=== PATIENT | male | born 1950 | race Caucasian/White ===

== ENCOUNTER → 2016-08-14 | Outpatient (CLI) | payer OTHER ==
[~2016-08-14] MED LIST: AMIT50TA PO; ASPI81TA85 PO; BACL10TA2 PO; FAMO40SU PO; Inhaler INH; LYRI100C10 PO; METO25TA74 PO; PLAV75TA38 PO; VICO5TAB16 PO
--- NOTE | 2016-08-15 01:29 | ECWPNPC ---
PATIENT NAME: JOSE MOSLEY : 1950 GENDER: MALE VISIT DATE: 08/14/2016 DISCHARGE DATE: 08/14/16 1004 VISIT LOCKED DATE TIME: PHYSICIAN: LEV BLEVINS RESOURCE: LEV BLEVINS HISTORY OF PRESENT ILLNESS HISTORY OF PRESENT ILLNESS: HERE FOR F/U FOR CHRONIC PAIN W HX OF WORK RELATED INJURY 1997.RATING PAIN VAS 5/10.DESCRIBES PAIN CONSTANT SHARP AND ACHING.USING DCS DAILY THAT IS HELPFUL.USING HYDROCODONE APROX. 6 TAB PER DAY BY ,PRIMARY CARE. PAIN THE PATIENT DESCRIBES THE PAIN... THE PATIENT DESCRIBES THE PAIN... THE PATIENT DESCRIBES THE PAIN... PAIN THE PATIENT DESCRIBES THE PAIN... THE PATIENT DESCRIBES THE PAIN... THE PATIENT DESCRIBES THE PAIN... FALL RISK SCREENING: SCREENING :NO FALLS IN THE PAST YEAR CURRENT MEDICATIONS TAKING HYDROCODONE-ACETAMINOPHEN 5-325 MG TABLET (SCHEDULE II DRUG) (PRIOR AUTH: RX REF#:[id number]) ORAL TAKING LYRICA 150 MG CAPSULE (SCHEDULE V DRUG) (PRIOR AUTH: RX REF#:[id number]) ORAL 3 TIMES DAILY TAKING BACLOFEN 10 MG TABLET (PRIOR AUTH: RX REF#:[id number]) ORAL 3 TIMES DAILY TAKING AMITRIPTYLINE HCL 25 MG TABLET (PRIOR AUTH: RX REF#:[id number]) ORAL 3 TIMES DAILY TAKING FAMOTIDINE 40 MG TABLET (PRIOR AUTH: RX REF#:[id number]) ORAL 3 TIMES DAILY TAKING CLOPIDOGREL BISULFATE 75 MG TABLET 1 TABLET ORALLY ONCE A DAY TAKING METOPROLOL TARTRATE 25 MG TABLET 1 TABLET ORALLY DAILY MEDICATION LIST REVIEWED AND RECONCILED WITH THE PATIENT PAST MEDICAL HISTORY CARDIAC STENTS ALLERGIES N.K.D.A. SURGICAL HISTORY SPINAL CORD STIMULAR [address] REVIEW OF SYSTEMS CONSTITUTIONAL: ANY CHANGE IN YOUR MEDICAL CONDITION? NO . CHILLS NO . FEVER NO . INFECTION: DO YOU HAVE NEW INFECTIONS? NO . DO YOU HAVE HISTORY OF MRSA? NO . MUSCULOSKELETAL: ANY NEW PATTERNS OF PAIN OR NUMBNESS? NO . GASTROENTEROLOGY: ANY NEW CHANGE IN BOWEL CONTROL? NO . GENITOURINARY: ANY NEW CHANGE IN BLADDER CONTROL? NO . IS THERE A CHANCE YOU COULD BE ? NO . HEMATOLOGY/LYMPH: DO YOU TAKE ANY BLOOD THINNERS? (FOR EXAMPLE- COUMADIN, PLAVIX, AGGRENOX, PLATEL, PRADAXA, OR XARELTO) YES, PLAVIX . WHEN WAS YOUR LAST DOSE? DATE: TIME: . NEUROLOGY: HAVE YOU FALLEN IN THE PAST 6 MONTHS? NO . ANY NEW EXTREMITY NUMBNESS OR WEAKNESS? NO . CARDIOLOGY: DO YOU HAVE A PACEMAKER OR DEFIBRILLATOR? NO . RESPIRATORY: HAVE YOU BEEN SICK IN THE PAST WEEK? NO . FEVER NO . FLU LIKE SYMPTOMS? NO . COUGH NO . INTEGUMENTARY: DO YOU HAVE ANY RASHES OR OPEN SORES? NO . ALLERGIC/IMMUNO: ARE YOU ALLERGIC TO SHELLFISH OR IV DYE? NO . ANY NEW ALLERGIES? NO . PSYCHIATRIC: DO YOU HAVE THOUGHTS OF HURTING YOURSELF OR SOMEONE ELSE? NO . ARE YOU ABUSED, NEGLECTED, OR IN AN UNSAFE ENVIRONMENT? NO . ENDOCRINOLOGY: ARE YOU DIABETIC? NO . OTHER: DO YOU NEED ANY PRESCRIPTIONS? NO . IF YES, PLEASE LIST: ____ . ANY NEW PROBLEMS WITH YOUR MEDICATIONS? NO . WHEN DID YOU LAST EAT? ____ . WHEN DID YOU LAST DRINK? ____ . WHAT DID YOU LAST DRINK? ____ . NAME OF PERSON DRIVING YOU HOME? ____ . DO YOU HAVE ANY OTHER QUESTIONS OR CONCERNS NO . REVIEWED BY: PROVIDER: LEV RENTERIA . VITAL SIGNS WT 175.0 LBS, HT 5'7", BMI 27.41 INDEX, BP 144/92 MM HG, HR 103 /MIN, RR 18 /MIN, TEMP 98.5 F, OXYGEN SAT % 96%, NA INITIALS TL 0953. EXAMINATION GENERAL EXAMINATION: LUNGS:LUNG SOUNDS ARE CLEAR. HEART:HEART RATE REGULAR. MUSCULOSKELETAL:PALPATION- POSITIVE TENDERNESS OVER R PARASPINAL REGION. INCISIONAL AREAS WELL HEALED W NO REDNESS. NON-TENDER., MUSCLE STRENGTH TESTING 5/5 R LEG,2/5L, RANGE OF MOTION L/S SPINE LIMITED W INCREASE PAIN W FLEXION AND EXTENSION.. DIAGNOSTIC: . ASSESSMENTS LOW BACK PAIN OF OVER 3 MONTHS DURATION - M54.5 (PRIMARY) OTHER CHRONIC PAIN - G89.29 TREATMENT LOW BACK PAIN OF OVER 3 MONTHS DURATION NOTES: CONTINUE WITH USE OF DCS/MEDICINE MANAGEMENT PER DR. MAYS. PROCEDURES PN WORKMANS' COMP OPINION IN YOUR OPINION, WAS THE INCIDENT THAT THE PATIENT DESCRIBED THE COMPETENT MEDICAL CAUSE OF THIS INJURY/ILLNESS? YES ARE THE PATIENT'S COMPLAINTS CONSISTENT WITH HIS/HER HISTORY OF THE INJURY/ILLNESS? YES IS THE PATIENT'S HISTORY OF THE INJURY/ILLNESS CONSISTENT WITH YOUR OBJECTIVE FINDING? YES WHAT IS THE PERCENTAGE OF TEMPORARY IMPAIRMENT? MODERATE TO MARKED = 66.7% IS THE PATIENT WORKING? NO DOCTOR ON SITE: ELMA IVEY MD PROCEDURE CODES FA211 ESTABILISHED PATIENT [facility] CHARGE DISPOSITION & COMMUNICATION FOLLOW UP 3 MONTHS ELECTRONICALLY SIGNED BY MYRA IQBAL ON 08/14/2016 AT 10:24 AM EDT DISCLAIMER : THIS IS A VISIT SUMMARY EXTRACTED FROM THE [employer] CHART. IT IS NOT A COPY OF THE [employer] PROGRESS NOTE. MALGORZATA
== END ==
LOC: M PAIN 09:20
PROVIDERS: ATTEND Nurse Practitioner Family
DX: G89.29 Other chronic pain (principal); M54.5 Low back pain; Z79.01 Long term (current) use of anticoagulants; Z79.891 Long term (current) use of opiate analgesic; Z79.899 Other long term (current) drug therapy

== ENCOUNTER → 2016-11-14 | Outpatient (CLI) | payer OTHER ==
[~2016-11-14] MED LIST changes: -FAMO40SU PO; +FAMO40SU4 PO; -LYRI100C10 PO; +METO1TAB32 PO; -METO25TA74 PO; +PLAV1TAB2 PO; -PLAV75TA38 PO; +PREG100CA PO
--- NOTE | 2016-11-15 01:50 | ECWPNPC ---
PATIENT NAME: JOSE MOSLEY : 1950 GENDER: MALE VISIT DATE: 11/14/2016 DISCHARGE DATE: 11/14/16930 VISIT LOCKED DATE TIME: PHYSICIAN: LEV BLEVINS RESOURCE: LEV BLEVINS REASON FOR APPOINTMENT 1. LBP HISTORY OF PRESENT ILLNESS HISTORY OF PRESENT ILLNESS: HERE FOR F/U FOR CHRONIC PAIN W HX OF WORK RELATED INJURY 1997.RATING PAIN VAS 5/10.DESCRIBES PAIN CONSTANT SHARP AND ACHING.USING DCS DAILY THAT IS HELPFUL.USING HYDROCODONE APROX. 6 TAB PER DAY BY ,PRIMARY CARE. PAIN THE PATIENT DESCRIBES THE PAIN... THE PATIENT DESCRIBES THE PAIN... THE PATIENT DESCRIBES THE PAIN... THE PATIENT DESCRIBES THE PAIN... PAIN THE PATIENT DESCRIBES THE PAIN... THE PATIENT DESCRIBES THE PAIN... THE PATIENT DESCRIBES THE PAIN... THE PATIENT DESCRIBES THE PAIN... PAIN THE PATIENT DESCRIBES THE PAIN... THE PATIENT DESCRIBES THE PAIN... THE PATIENT DESCRIBES THE PAIN... THE PATIENT DESCRIBES THE PAIN... FALL RISK SCREENING: SCREENING :NO FALLS IN THE PAST YEAR CURRENT MEDICATIONS TAKING HYDROCODONE-ACETAMINOPHEN 5-325 MG TABLET (SCHEDULE II DRUG) (PRIOR AUTH: RX REF#:[id number]) ORAL UP TO 6 PER DAY NEEDED TAKING LYRICA 150 MG CAPSULE (SCHEDULE V DRUG) (PRIOR AUTH: RX REF#:[id number]) ORAL 3 TIMES DAILY TAKING BACLOFEN 10 MG TABLET (PRIOR AUTH: RX REF#:[id number]) ORAL 3 TIMES DAILY TAKING AMITRIPTYLINE HCL 25 MG TABLET (PRIOR AUTH: RX REF#:[id number]) ORAL 3 TIMES DAILY TAKING FAMOTIDINE 40 MG TABLET (PRIOR AUTH: RX REF#:[id number]) ORAL 3 TIMES DAILY TAKING CLOPIDOGREL BISULFATE 75 MG TABLET 1 TABLET ORALLY ONCE A DAY TAKING METOPROLOL TARTRATE 25 MG TABLET 1 TABLET ORALLY DAILY MEDICATION LIST REVIEWED AND RECONCILED WITH THE PATIENT PAST MEDICAL HISTORY CARDIAC STENTS ALLERGIES N.K.D.A. SOCIAL HISTORY GENERAL: TOBACCO USE ARE YOU A:FORMER SMOKER HOW LONG HAS IT BEEN SINCE YOU LAST SMOKED?1-5 YEARS ALCOHOL SCREENING DID YOU HAVE A DRINK CONTAINING ALCOHOL IN THE PAST YEAR?YES POINTS2 INTERPRETATIONNEGATIVE HOW OFTEN DID YOU HAVE A DRINK CONTAINING ALCOHOL IN THE PAST YEAR?TWO TO FOUR TIMES A MONTH (2 POINTS) HOW MANY DRINKS DID YOU HAVE ON A TYPICAL DAY WHEN YOU WERE DRINKING IN THE PAST YEAR?1 OR 2 (0 POINTS) HOW OFTEN DID YOU HAVE SIX OR MORE DRINKS ON ONE OCCASION IN THE PAST YEAR?NEVER (0 POINTS) RECREATIONAL DRUG USE DRUG USE?YES HOW OFTEN AND HOW MUCH? SMOKES POT EVERY NIGHT BEFORE HER GOES TO BED CAFFEINE CAFFEINE USE?NO MARITAL STATUS: . RELIGIOUS [id number] PENTECOSTAL LANGUAGE LANGUAGES SPOKEN:[place] LEARNING BARRIERS / SPECIAL NEEDS BARRIERS TO LEARNING?NO HEARING IMPAIRED?NO VISION IMPAIRED?YES :CORRECTIVE LENSES COGNITIVELY IMPAIRED?NO READINESS TO LEARN?YES LEARNING PREFERENCES?NO LEARNING CAPABILITIES PRESENT?YES EMOTIONAL BARRIERS?NO SPECIAL DEVICES?NO TRANSPORTATION ASSOCIATE NEEDED?NO PAIN CLINIC PFS, CLERGY, PUBLIC HEALTH REFERRALS PFS REFERRAL NEEDED?NO CLERGY REFERRAL NEEDED?NO PUBLIC HEALTH REFERRAL NEEDED?NO WAS THE PROVIDER NOTIFIED OF ANY PERTINENT INFO?NO HAS THE PATIENT BEEN EDUCATED REGARDING HIS/HER PLAN OF CARE?YES HAS THE PATIENT BEEN EDUCATED REGARDING PAIN, THE RISK FOR PAIN, THE IMPORTANCE OF EFFECTIVE PAIN MANAGEMENT, AND THE PAIN ASSESSMENT PROCESS?YES ADVANCE DIRECTIVES HEALTH CARE PROXY?YES NAME OF HCP GARETT MELANY CONTACT # FOR HCP [phone] DO YOU HAVE A COPY WITH YOU?NO DO YOU HAVE A DNR?NO WOULD YOU LIKE MORE INFORMATION?NO LIVING WILL?NO WOULD YOU LIKE MORE INFORMATION?NO POWER OF BILINGUAL LEGAL ASSISTANT?NO WOULD YOU LIKE MORE INFORMATION?NO REVIEW OF SYSTEMS REVIEWED BY: PROVIDER: LEV RENTERIA . CONSTITUTIONAL: ANY CHANGE IN YOUR MEDICAL CONDITION? NO . CHILLS NO . FEVER NO . INFECTION: DO YOU HAVE NEW INFECTIONS? NO . DO YOU HAVE HISTORY OF MRSA? NO . MUSCULOSKELETAL: ANY NEW PATTERNS OF PAIN OR NUMBNESS? NO . GASTROENTEROLOGY: ANY NEW CHANGE IN BOWEL CONTROL? NO . GENITOURINARY: ANY NEW CHANGE IN BLADDER CONTROL? NO . IS THERE A CHANCE YOU COULD BE ? NO . HEMATOLOGY/LYMPH: DO YOU TAKE ANY BLOOD THINNERS? (FOR EXAMPLE- COUMADIN, PLAVIX, AGGRENOX, PLATEL, PRADAXA, OR XARELTO) YES, PLAVIX . WHEN WAS YOUR LAST DOSE? DATE:11/14/16 TIME: 0400 . NEUROLOGY: HAVE YOU FALLEN IN THE PAST 6 MONTHS? NO . ANY NEW EXTREMITY NUMBNESS OR WEAKNESS? NO . CARDIOLOGY: DO YOU HAVE A PACEMAKER OR DEFIBRILLATOR? NO . RESPIRATORY: HAVE YOU BEEN SICK IN THE PAST WEEK? NO . FEVER NO . FLU LIKE SYMPTOMS? NO . COUGH NO . INTEGUMENTARY: DO YOU HAVE ANY RASHES OR OPEN SORES? NO . ALLERGIC/IMMUNO: ARE YOU ALLERGIC TO SHELLFISH OR IV DYE? NO . ANY NEW ALLERGIES? NO . PSYCHIATRIC: DO YOU HAVE THOUGHTS OF HURTING YOURSELF OR SOMEONE ELSE? NO . ARE YOU ABUSED, NEGLECTED, OR IN AN UNSAFE ENVIRONMENT? NO . ENDOCRINOLOGY: ARE YOU DIABETIC? NO . OTHER: DO YOU NEED ANY PRESCRIPTIONS? NO . IF YES, PLEASE LIST: ____ . ANY NEW PROBLEMS WITH YOUR MEDICATIONS? NO . WHEN DID YOU LAST EAT? ____ . WHEN DID YOU LAST DRINK? ____ . WHAT DID YOU LAST DRINK? ____ . NAME OF PERSON DRIVING YOU HOME? ____ . DO YOU HAVE ANY OTHER QUESTIONS OR CONCERNS NO . VITAL SIGNS WT 182.2 LBS, HT 5'7", BMI 28.53 INDEX, BP 128/84 MM HG, HR 100 /MIN, RR 20 /MIN, TEMP 97.5 F, OXYGEN SAT % 95%, REVIEWED BY: JOSELITO (DONE AT 0901). EXAMINATION GENERAL EXAMINATION: LUNGS:LUNG SOUNDS ARE CLEAR. HEART:HEART RATE REGULAR. MUSCULOSKELETAL:PALPATION- POSITIVE TENDERNESS OVER R PARASPINAL REGION. INCISIONAL AREAS WELL HEALED W NO REDNESS. NON-TENDER., MUSCLE STRENGTH TESTING 5/5 R LEG,2/5L, RANGE OF MOTION L/S SPINE LIMITED W INCREASE PAIN W FLEXION AND EXTENSION.. DIAGNOSTIC: . ASSESSMENTS LOW BACK PAIN OF OVER 3 MONTHS DURATION - M54.5 (PRIMARY) OTHER CHRONIC PAIN - G89.29 TREATMENT LOW BACK PAIN OF OVER 3 MONTHS DURATION NOTES: CONTINUE HOME EXCERSIZE AND STRETCHING.CONTINUE USE OF DCS. PROCEDURES PN WORKMANS' COMP OPINION IN YOUR OPINION, WAS THE INCIDENT THAT THE PATIENT DESCRIBED THE COMPETENT MEDICAL CAUSE OF THIS INJURY/ILLNESS? YES ARE THE PATIENT'S COMPLAINTS CONSISTENT WITH HIS/HER HISTORY OF THE INJURY/ILLNESS? YES IS THE PATIENT'S HISTORY OF THE INJURY/ILLNESS CONSISTENT WITH YOUR OBJECTIVE FINDING? YES WHAT IS THE PERCENTAGE OF TEMPORARY IMPAIRMENT? MODERATE TO MARKED = 66.7% IS THE PATIENT WORKING? NO DOCTOR ON SITE: ELMA IVEY MD PROCEDURE CODES FA211 ESTABILISHED PATIENT [facility] CHARGE DISPOSITION & COMMUNICATION FOLLOW UP 3 MONTHS ELECTRONICALLY SIGNED BY MYRA IQBAL ON 11/14/2016 AT 09:33 AM EDT DISCLAIMER : THIS IS A VISIT SUMMARY EXTRACTED FROM THE [employer] CHART. IT IS NOT A COPY OF THE [employer] PROGRESS NOTE. MALGORZATA
== END ==
LOC: M PAIN 09:00
PROVIDERS: ATTEND Nurse Practitioner Family
DX: G89.29 Other chronic pain (principal); M54.5 Low back pain; Z79.899 Other long term (current) drug therapy; Z87.891 Personal history of nicotine dependence

== ENCOUNTER → 2017-04-09 | Outpatient (CLI) | payer OTHER | END | disposition home or self-care (01) | LOC: M PAIN 09:00 | DX: G89.29 Other chronic pain (principal); M54.5 Low back pain; Z95.5 Presence of coronary angioplasty implant and graft; Z79.899 Other long term (current) drug therapy; Z87.891 Personal history of nicotine dependence | CPT/HCPCS: G0463 ==

== ENCOUNTER → 2017-07-22 | Outpatient (CLI) | payer OTHER | LOC: M PAIN 08:45 | DX: G89.29 Other chronic pain (principal); M54.5 Low back pain; Z79.891 Long term (current) use of opiate analgesic; Z79.899 Other long term (current) drug therapy; Z95.5 Presence of coronary angioplasty implant and graft | CPT/HCPCS: G0463 ==

== ENCOUNTER → 2017-10-22 | Outpatient (CLI) | payer OTHER | LOC: M PAIN 08:30 | DX: G89.29 Other chronic pain (principal); M54.5 Low back pain; Z87.891 Personal history of nicotine dependence; Z79.899 Other long term (current) drug therapy | CPT/HCPCS: G0463 ==

== ENCOUNTER → 2018-01-23 | Outpatient (CLI) | payer OTHER | LOC: M PAIN 09:30 | DX: M54.5 Low back pain (principal); G89.29 Other chronic pain; Z79.01 Long term (current) use of anticoagulants; Z79.899 Other long term (current) drug therapy; Z87.891 Personal history of nicotine dependence; Z86.79 Personal history of other diseases of the circulatory system | CPT/HCPCS: G0463 ==

== ENCOUNTER → 2018-06-05 | Outpatient (CLI) | payer OTHER ==
--- NOTE | 2018-06-06 01:48 | ECWPNPC ---
PATIENT NAME: JOSE MOSLEY : 1950 GENDER: MALE VISIT DATE: 06/05/2018 DISCHARGE DATE: 06/05/18943 VISIT LOCKED DATE TIME: PHYSICIAN: LEV BLEVINS RESOURCE: LEV BLEVINS REASON FOR APPOINTMENT 1. W/C BACK HISTORY OF PRESENT ILLNESS HISTORY OF PRESENT ILLNESS: HERE FOR F/U FOR CHRONIC PAIN W HX OF WORK RELATED INJURY 1997.RATING PAIN VAS 5/10.DESCRIBES PAIN CONSTANT SHARP AND ACHING.USING DCS DAILY THAT IS HELPFUL.USING HYDROCODONE APROX. 6 TAB PER DAY BY ,PRIMARY CARE. CONTINUES TO REPORT DOING OK WITH CURRENT REGIMEN.DENIES SIDE EFFECTS. PAIN THE PATIENT DESCRIBES THE PAIN... THE PATIENT DESCRIBES THE PAIN... THE PATIENT DESCRIBES THE PAIN... THE PATIENT DESCRIBES THE PAIN... THE PATIENT DESCRIBES THE PAIN... THE PATIENT DESCRIBES THE PAIN... THE PATIENT DESCRIBES THE PAIN... THE PATIENT DESCRIBES THE PAIN... THE PATIENT DESCRIBES THE PAIN... PAIN THE PATIENT DESCRIBES THE PAIN... THE PATIENT DESCRIBES THE PAIN... THE PATIENT DESCRIBES THE PAIN... THE PATIENT DESCRIBES THE PAIN... THE PATIENT DESCRIBES THE PAIN... THE PATIENT DESCRIBES THE PAIN... THE PATIENT DESCRIBES THE PAIN... THE PATIENT DESCRIBES THE PAIN... THE PATIENT DESCRIBES THE PAIN... FALL RISK SCREENING: SCREENING :NO FALLS REPORTED IN THE LAST YEAR CURRENT MEDICATIONS TAKING HYDROCODONE-ACETAMINOPHEN 5-325 MG TABLET (SCHEDULE II DRUG) (PRIOR AUTH: RX REF#:[id number]) ORAL UP TO 6 PER DAY NEEDED TAKING LYRICA 150 MG CAPSULE (SCHEDULE V DRUG) (PRIOR AUTH: RX REF#:[id number]) ORAL 3 TIMES DAILY TAKING BACLOFEN 10 MG TABLET (PRIOR AUTH: RX REF#:[id number]) ORAL 3 TIMES DAILY TAKING AMITRIPTYLINE HCL 25 MG TABLET (PRIOR AUTH: RX REF#:[id number]) ORAL 3 TIMES DAILY TAKING FAMOTIDINE 40 MG TABLET (PRIOR AUTH: RX REF#:[id number]) ORAL 3 TIMES DAILY TAKING CLOPIDOGREL BISULFATE 75 MG TABLET 1 TABLET ORALLY ONCE A DAY TAKING METOPROLOL TARTRATE 25 MG TABLET 1 TABLET ORALLY DAILY MEDICATION LIST REVIEWED AND RECONCILED WITH THE PATIENT PAST MEDICAL HISTORY CARDIAC STENTS ALLERGIES N.K.D.A. SURGICAL HISTORY SPINAL CORD STIMULAR [address] 2013 2 HEART STENTS 2019 FAMILY HISTORY FATHER: , DIAGNOSED WITH HEART DISEASE MOTHER: SIBLINGS: , DIABETES, HEART DISEASE 2 BROTHER(S) . 2DAUGHTER(S) . BROTHERS 1 DM, 1 HEART DISEASE. SOCIAL HISTORY GENERAL: TOBACCO USE ARE YOU A:FORMER SMOKER HOW LONG HAS IT BEEN SINCE YOU LAST SMOKED?1-5 YEARS ALCOHOL SCREENING POINTS: 2, INTERPRETATION: NEGATIVE. RECREATIONAL DRUG USE DRUG USE?YES HOW OFTEN AND HOW MUCH? SMOKES POT EVERY NIGHT BEFORE HER GOES TO BED CAFFEINE CAFFEINE USE?NO JAIN [id number] LANGUAGE LANGUAGES SPOKEN:HAITIAN LEARNING BARRIERS / SPECIAL NEEDS BARRIERS TO LEARNING?NO HEARING IMPAIRED?NO VISION IMPAIRED?YES :CORRECTIVE LENSES COGNITIVELY IMPAIRED?NO READINESS TO LEARN?YES LEARNING PREFERENCES?NO LEARNING CAPABILITIES PRESENT?YES EMOTIONAL BARRIERS?NO SPECIAL DEVICES?NO DIETETIC AIDE NEEDED?NO MARITAL STATUS: . PAIN CLINIC PFS, CLERGY, PUBLIC HEALTH REFERRALS PFS REFERRAL NEEDED?NO CLERGY REFERRAL NEEDED?NO PUBLIC HEALTH REFERRAL NEEDED?NO WAS THE PROVIDER NOTIFIED OF ANY PERTINENT INFO?YES HAS THE PATIENT BEEN EDUCATED REGARDING HIS/HER PLAN OF CARE?YES HAS THE PATIENT BEEN EDUCATED REGARDING PAIN, THE RISK FOR PAIN, THE IMPORTANCE OF EFFECTIVE PAIN MANAGEMENT, AND THE PAIN ASSESSMENT PROCESS?YES ADVANCE DIRECTIVE ADVANCE DIRECTIVE DISCUSSED WITH PATIENT:YES GARETT MOSLEY [phone] HOSPITALIZATION/MAJOR DIAGNOSTIC PROCEDURE SURGERY RELATED REVIEW OF SYSTEMS REVIEWED BY: PROVIDER: LEV RENTERIA . CONSTITUTIONAL: ANY CHANGE IN YOUR MEDICAL CONDITION? NO . CHILLS NO . FEVER NO . INFECTION: DO YOU HAVE NEW INFECTIONS? NO . DO YOU HAVE HISTORY OF MRSA? NO . MUSCULOSKELETAL: ANY NEW PATTERNS OF PAIN OR NUMBNESS? NO CHANGE . GASTROENTEROLOGY: ANY NEW CHANGE IN BOWEL CONTROL? NO . GENITOURINARY: ANY NEW CHANGE IN BLADDER CONTROL? NO . IS THERE A CHANCE YOU COULD BE ? NO . HEMATOLOGY/LYMPH: DO YOU TAKE ANY BLOOD THINNERS? (FOR EXAMPLE- COUMADIN, PLAVIX, AGGRENOX, PLATEL, PRADAXA, OR XARELTO) YES, PLAVIX . WHEN WAS YOUR LAST DOSE? DATE: TIME: . NEUROLOGY: HAVE YOU FALLEN IN THE PAST 12 MONTHS? YES, FELL 3 WEEKS AGO FROM LOSS OF BALANCE PT DENIES INJURIES NEEDING TX . ANY NEW EXTREMITY NUMBNESS OR WEAKNESS? NO . CARDIOLOGY: DO YOU HAVE A PACEMAKER OR DEFIBRILLATOR? NO . RESPIRATORY: HAVE YOU BEEN SICK IN THE PAST WEEK? NO . FEVER NO . FLU LIKE SYMPTOMS? NO . COUGH NO . INTEGUMENTARY: DO YOU HAVE ANY RASHES OR OPEN SORES? NO . ALLERGIC/IMMUNO: ARE YOU ALLERGIC TO IV DYE? NO . ANY NEW ALLERGIES? NO . PSYCHIATRIC: DO YOU HAVE THOUGHTS OF HURTING YOURSELF OR SOMEONE ELSE? NO . ARE YOU ABUSED, NEGLECTED, OR IN AN UNSAFE ENVIRONMENT? NO . ENDOCRINOLOGY: ARE YOU DIABETIC? NO . OTHER: DO YOU NEED ANY PRESCRIPTIONS? NO . IF YES, PLEASE LIST: ____ . ANY NEW PROBLEMS WITH YOUR MEDICATIONS? NO . WHEN DID YOU LAST EAT? ____ . WHEN DID YOU LAST DRINK? ____ . WHAT DID YOU LAST DRINK? ____ . NAME OF PERSON DRIVING YOU HOME? ____ . DO YOU HAVE ANY OTHER QUESTIONS OR CONCERNS NO . VITAL SIGNS WT 198 LBS, HT 5'7", BMI 31.01 INDEX, BP 142/71 MM HG, HR 94 /MIN, RR 18 /MIN, TEMP 99.1 F, OXYGEN SAT % 94%, NA INITIALS AW 0923, REVIEWED BY: EM. EXAMINATION GENERAL EXAMINATION: LUNGS:LUNG SOUNDS ARE CLEAR. HEART:HEART RATE REGULAR. MUSCULOSKELETAL:PALPATION- POSITIVE TENDERNESS OVER R PARASPINAL REGION. INCISIONAL AREAS WELL HEALED W NO REDNESS. NON-TENDER., MUSCLE STRENGTH TESTING 5/5 R LEG,2/5L, RANGE OF MOTION L/S SPINE LIMITED W INCREASE PAIN W FLEXION AND EXTENSION.. DIAGNOSTIC: . ASSESSMENTS LOW BACK PAIN OF OVER 3 MONTHS DURATION - M54.5 (PRIMARY) OTHER CHRONIC PAIN - G89.29 TREATMENT LOW BACK PAIN OF OVER 3 MONTHS DURATION NOTES: CONTINUE W DCS. PROCEDURES PN WORKMANS' COMP OPINION IN YOUR OPINION, WAS THE INCIDENT THAT THE PATIENT DESCRIBED THE COMPETENT MEDICAL CAUSE OF THIS INJURY/ILLNESS? YES ARE THE PATIENT'S COMPLAINTS CONSISTENT WITH HIS/HER HISTORY OF THE INJURY/ILLNESS? YES IS THE PATIENT'S HISTORY OF THE INJURY/ILLNESS CONSISTENT WITH YOUR OBJECTIVE FINDING? YES WHAT IS THE PERCENTAGE OF TEMPORARY IMPAIRMENT? MODERATE TO MARKED = 66.7% IS THE PATIENT WORKING? NO DOCTOR ON SITE: ELMA IVEY MD PROCEDURE CODES FA211 ESTABILISHED PATIENT [facility] CHARGE DISPOSITION & COMMUNICATION FOLLOW UP 3 MONTHS ELECTRONICALLY SIGNED BY MYRA GEORGE ON 06/05/2018 AT 09:46 AM EDT DISCLAIMER : THIS IS A VISIT SUMMARY EXTRACTED FROM THE [employer] CHART. IT IS NOT A COPY OF THE [employer] PROGRESS NOTE. MALGORZATA
== END ==
LOC: M PAIN 09:15
PROVIDERS: ATTEND Nurse Practitioner Family
DX: M54.5 Low back pain (principal); G89.29 Other chronic pain; Z79.01 Long term (current) use of anticoagulants; Z79.899 Other long term (current) drug therapy; Z87.891 Personal history of nicotine dependence; Z86.79 Personal history of other diseases of the circulatory system; Z95.5 Presence of coronary angioplasty implant and graft

== ENCOUNTER → 2018-09-04 | Outpatient (CLI) | payer OTHER ==
[~2018-09-04] MED LIST changes: +FAMO40SU2 PO; -FAMO40SU4 PO; -VICO5TAB16 PO; +VICO5TAB17 PO
--- NOTE | 2018-09-23 02:06 | ECWPNPC ---
PATIENT NAME: JOSE MOSLEY : 1950 GENDER: MALE VISIT DATE: 09/04/2018 DISCHARGE DATE: 09/04/18922 VISIT LOCKED DATE TIME: PHYSICIAN: LEV BLEVINS RESOURCE: LEV BLEVINS REASON FOR APPOINTMENT 1. W/C BACK HISTORY OF PRESENT ILLNESS HISTORY OF PRESENT ILLNESS: HERE FOR F/U FOR CHRONIC PAIN W HX OF WORK RELATED INJURY 1997.RATING PAIN VAS 6/10.DESCRIBES PAIN CONSTANT SHARP AND ACHING.USING DCS DAILY THAT IS HELPFUL.USING HYDROCODONE APROX. 6 TAB PER DAY BY ,PRIMARY CARE. CONTINUES TO REPORT DOING OK WITH CURRENT REGIMEN.DENIES SIDE EFFECTS. PAIN THE PATIENT DESCRIBES THE PAIN... THE PATIENT DESCRIBES THE PAIN... THE PATIENT DESCRIBES THE PAIN... THE PATIENT DESCRIBES THE PAIN... THE PATIENT DESCRIBES THE PAIN... THE PATIENT DESCRIBES THE PAIN... THE PATIENT DESCRIBES THE PAIN... THE PATIENT DESCRIBES THE PAIN... THE PATIENT DESCRIBES THE PAIN... THE PATIENT DESCRIBES THE PAIN... FALL RISK SCREENING: SCREENING :NO FALLS REPORTED IN THE LAST YEAR CURRENT MEDICATIONS TAKING HYDROCODONE-ACETAMINOPHEN 5-325 MG TABLET (SCHEDULE II DRUG) (PRIOR AUTH: RX REF#:[id number]) ORAL UP TO 6 PER DAY NEEDED TAKING LYRICA 150 MG CAPSULE (SCHEDULE V DRUG) (PRIOR AUTH: RX REF#:[id number]) ORAL 3 TIMES DAILY TAKING BACLOFEN 10 MG TABLET (PRIOR AUTH: RX REF#:[id number]) ORAL 3 TIMES DAILY TAKING AMITRIPTYLINE HCL 25 MG TABLET (PRIOR AUTH: RX REF#:[id number]) ORAL 3 TIMES DAILY TAKING FAMOTIDINE 40 MG TABLET (PRIOR AUTH: RX REF#:[id number]) ORAL 3 TIMES DAILY TAKING METOPROLOL TARTRATE 25 MG TABLET 1 TABLET ORALLY DAILY TAKING BRILINTA 60 MG TABLET 1 TABLET ORALLY TWICE A DAY, NOTES: PT UNSURE OF DOSE NOT-TAKING CLOPIDOGREL BISULFATE 75 MG TABLET 1 TABLET ORALLY ONCE A DAY MEDICATION LIST REVIEWED AND RECONCILED WITH THE PATIENT PAST MEDICAL HISTORY CARDIAC STENTS CHRONIC LOW BACK PAIN ALLERGIES N.K.D.A. SURGICAL HISTORY SPINAL CORD STIMULATOR [address] 2012 2 HEART STENTS 2018 FAMILY HISTORY FATHER: , DIAGNOSED WITH HEART DISEASE MOTHER: SIBLINGS: , DIABETES, HEART DISEASE 2 BROTHER(S) . 2DAUGHTER(S) . BROTHERS 1 DM, 1 HEART DISEASE. SOCIAL HISTORY GENERAL: TOBACCO USE ARE YOU A:FORMER SMOKER HOW LONG HAS IT BEEN SINCE YOU LAST SMOKED?1-5 YEARS DIET: REGULAR. LANGUAGE LANGUAGES SPOKEN:UPPER SORBIAN RECREATIONAL DRUG USE DRUG USE?YES HOW OFTEN AND HOW MUCH? SMOKES POT EVERY NIGHT BEFORE HE GOES TO BED EXERCISE: WALKS. LEARNING BARRIERS / SPECIAL NEEDS BARRIERS TO LEARNING?NO HEARING IMPAIRED?NO VISION IMPAIRED?YES :CORRECTIVE LENSES COGNITIVELY IMPAIRED?NO READINESS TO LEARN?YES LEARNING PREFERENCES?NO LEARNING CAPABILITIES PRESENT?YES EMOTIONAL BARRIERS?NO SPECIAL DEVICES?NO REVERSER NEEDED?NO PAIN CLINIC PFS, CLERGY, PUBLIC HEALTH REFERRALS PFS REFERRAL NEEDED?NO CLERGY REFERRAL NEEDED?NO PUBLIC HEALTH REFERRAL NEEDED?NO WAS THE PROVIDER NOTIFIED OF ANY PERTINENT INFO?YES HAS THE PATIENT BEEN EDUCATED REGARDING HIS/HER PLAN OF CARE?YES HAS THE PATIENT BEEN EDUCATED REGARDING PAIN, THE RISK FOR PAIN, THE IMPORTANCE OF EFFECTIVE PAIN MANAGEMENT, AND THE PAIN ASSESSMENT PROCESS?YES LATEX QUESTIONNAIRE LATEX ALLERGY : HAVE YOU EVER DEVELOPED ANY TYPE OF REACTION AFTER HANDLING LATEX PRODUCTS SUCH RUBBER GLOVES, CONDOMS, DIAPHRAGMS, BALLOONS, SOCKS, OR UNDERWEAR?NO LATEX ALLERGY : HAVE YOU EVER DEVELOPED ANY TYPE OF REACTION DURING OR AFTER DENTAL APPOINTMENT, VAGINAL/RECTAL EXAMINATION, SURGICAL PROCEDURE, OR ANY OTHER EXPOSURE?NO LATEX RISK : HAVE YOU EVER HAD ANY DIFFICULTY BREATHING OR HIVES AFTER EATING OR HANDLING ANY FRUITS, OR VEGETABLES; SUCH KIWI, BANANAS, STONE FRUITS, OR CHESTNUTSNO LATEX RISK : DO YOU HAVE A PREVIOUS PERSONAL HISTORY OF MORE THAN NINE SURGERIES, SPINA BIFIDA, OR REPEATED CATHERTIZATIONS? NO LATEX RISK : ARE YOU FREQUENTLY EXPOSED TO LATEX PRODUCTS IN YOUR OCCUPATION?NO CAFFEINE CAFFEINE USE?NO ADVANCE DIRECTIVE ADVANCE DIRECTIVE DISCUSSED WITH PATIENT:YES GARETT MOSLEY [phone] SABIANIST [id number] YARSANI MARITAL STATUS: . ALCOHOL SCREENING POINTS: 2, INTERPRETATION: NEGATIVE. HOSPITALIZATION/MAJOR DIAGNOSTIC PROCEDURE SURGERY RELATED REVIEW OF SYSTEMS REVIEWED BY: PROVIDER: LEV RENTERIA . CONSTITUTIONAL: ANY CHANGE IN YOUR MEDICAL CONDITION? NO . CHILLS NO . FEVER NO . INFECTION: DO YOU HAVE NEW INFECTIONS? NO . DO YOU HAVE HISTORY OF MRSA? NO . MUSCULOSKELETAL: ANY NEW PATTERNS OF PAIN OR NUMBNESS? NO . GASTROENTEROLOGY: ANY NEW CHANGE IN BOWEL CONTROL? NO . GENITOURINARY: ANY NEW CHANGE IN BLADDER CONTROL? NO . IS THERE A CHANCE YOU COULD BE ? NO . HEMATOLOGY/LYMPH: DO YOU TAKE ANY BLOOD THINNERS? (FOR EXAMPLE- COUMADIN, PLAVIX, AGGRENOX, PLATEL, PRADAXA, OR XARELTO) NO . WHEN WAS YOUR LAST DOSE? DATE: TIME: . NEUROLOGY: HAVE YOU FALLEN IN THE PAST 12 MONTHS? YES . ANY NEW EXTREMITY NUMBNESS OR WEAKNESS? YES -LEG; HAS DORSAL COLUMN STIMULATOR . CARDIOLOGY: DO YOU HAVE A PACEMAKER OR DEFIBRILLATOR? NO . RESPIRATORY: HAVE YOU BEEN SICK IN THE PAST WEEK? NO . FEVER NO . FLU LIKE SYMPTOMS? NO . COUGH NO . INTEGUMENTARY: DO YOU HAVE ANY RASHES OR OPEN SORES? NO . ALLERGIC/IMMUNO: ARE YOU ALLERGIC TO IV DYE? NO . ANY NEW ALLERGIES? NO . PSYCHIATRIC: DO YOU HAVE THOUGHTS OF HURTING YOURSELF OR SOMEONE ELSE? NO . ARE YOU ABUSED, NEGLECTED, OR IN AN UNSAFE ENVIRONMENT? NO . ENDOCRINOLOGY: ARE YOU DIABETIC? NO . OTHER: DO YOU NEED ANY PRESCRIPTIONS? NO . IF YES, PLEASE LIST: ____ . ANY NEW PROBLEMS WITH YOUR MEDICATIONS? NO . WHEN DID YOU LAST EAT? ____ . WHEN DID YOU LAST DRINK? ____ . WHAT DID YOU LAST DRINK? ____ . NAME OF PERSON DRIVING YOU HOME? ____ . DO YOU HAVE ANY OTHER QUESTIONS OR CONCERNS NO . VITAL SIGNS WT 197.4 LBS, HT 5'7", BMI 30.91 INDEX, BP 151/84 MM HG, HR 101 /MIN, RR 18 /MIN, TEMP 97.1 F, OXYGEN SAT % 96%, NA INITIALS NE 08:47, REVIEWED BY: BINA. EXAMINATION GENERAL EXAMINATION: LUNGS:LUNG SOUNDS ARE CLEAR. HEART:HEART RATE REGULAR. MUSCULOSKELETAL:PALPATION- POSITIVE TENDERNESS OVER R PARASPINAL REGION. INCISIONAL AREAS WELL HEALED W NO REDNESS. NON-TENDER., MUSCLE STRENGTH TESTING 5/5 R LEG,2/5L, RANGE OF MOTION L/S SPINE LIMITED W INCREASE PAIN W FLEXION AND EXTENSION.. DIAGNOSTIC: . ASSESSMENTS LOW BACK PAIN OF OVER 3 MONTHS DURATION - M54.5 (PRIMARY) OTHER CHRONIC PAIN - G89.29 TREATMENT LOW BACK PAIN OF OVER 3 MONTHS DURATION NOTES: CONTINUE USE OF DCS AND MEDICATION THROUGH PRIMARY CARE. PROCEDURES PN WORKMANS' COMP OPINION IN YOUR OPINION, WAS THE INCIDENT THAT THE PATIENT DESCRIBED THE COMPETENT MEDICAL CAUSE OF THIS INJURY/ILLNESS? YES ARE THE PATIENT'S COMPLAINTS CONSISTENT WITH HIS/HER HISTORY OF THE INJURY/ILLNESS? YES IS THE PATIENT'S HISTORY OF THE INJURY/ILLNESS CONSISTENT WITH YOUR OBJECTIVE FINDING? YES WHAT IS THE PERCENTAGE OF TEMPORARY IMPAIRMENT? MODERATE TO MARKED = 66.7% IS THE PATIENT WORKING? NO DOCTOR ON SITE: ELMA IVEY MD PROCEDURE CODES FA211 ESTABILISHED PATIENT [facility] CHARGE DISPOSITION & COMMUNICATION FOLLOW UP 6 MONTHS ELECTRONICALLY SIGNED BY MYRA GEORGE ON 09/22/2018 AT 01:40 PM EDT DISCLAIMER : THIS IS A VISIT SUMMARY EXTRACTED FROM THE [employer] CHART. IT IS NOT A COPY OF THE [employer] PROGRESS NOTE. MALGORZATA
== END ==
LOC: M PAIN 08:45
PROVIDERS: ATTEND Nurse Practitioner Family
DX: G89.29 Other chronic pain (principal); M54.5 Low back pain; Z95.5 Presence of coronary angioplasty implant and graft; Z87.891 Personal history of nicotine dependence; Z79.891 Long term (current) use of opiate analgesic; Z79.899 Other long term (current) drug therapy

== ENCOUNTER → 2018-12-01 | Outpatient (CLI) | payer OTHER ==
--- NOTE | 2018-12-02 02:04 | ECWPNPC ---
PATIENT NAME: JOSE MOSLEY : 1950 GENDER: MALE VISIT DATE: 12/01/2018 DISCHARGE DATE: 12/01/18927 VISIT LOCKED DATE TIME: PHYSICIAN: LEV BLEVINS RESOURCE: LEV BLEVINS REASON FOR APPOINTMENT 1. W/C BACK HISTORY OF PRESENT ILLNESS HISTORY OF PRESENT ILLNESS: HERE FOR F/U FOR CHRONIC PAIN W HX OF WORK RELATED INJURY 1997.RATING PAIN VAS 5/10.DESCRIBES PAIN CONSTANT SHARP AND ACHING.USING DCS DAILY THAT IS HELPFUL.USING HYDROCODONE 10/325 APROX. 3 TAB PER DAY BY PRIMARY CARE. CONTINUES TO REPORT DOING OK WITH CURRENT REGIMEN.DENIES SIDE EFFECTS. PAIN THE PATIENT DESCRIBES THE PAIN... THE PATIENT DESCRIBES THE PAIN... THE PATIENT DESCRIBES THE PAIN... THE PATIENT DESCRIBES THE PAIN... THE PATIENT DESCRIBES THE PAIN... THE PATIENT DESCRIBES THE PAIN... THE PATIENT DESCRIBES THE PAIN... THE PATIENT DESCRIBES THE PAIN... THE PATIENT DESCRIBES THE PAIN... THE PATIENT DESCRIBES THE PAIN... THE PATIENT DESCRIBES THE PAIN... FALL RISK SCREENING: SCREENING :NO FALLS REPORTED IN THE LAST YEAR CURRENT MEDICATIONS TAKING HYDROCODONE-ACETAMINOPHEN 10-325 MG TABLET (SCHEDULE II DRUG) (PRIOR AUTH: RX REF#:[id number]) ORALLY UP TO 6 PER DAY NEEDED TAKING LYRICA 150 MG CAPSULE (SCHEDULE V DRUG) (PRIOR AUTH: RX REF#:[id number]) ORAL 3 TIMES DAILY TAKING BACLOFEN 10 MG TABLET (PRIOR AUTH: RX REF#:[id number]) ORAL 3 TIMES DAILY TAKING AMITRIPTYLINE HCL 25 MG TABLET (PRIOR AUTH: RX REF#:[id number]) ORAL 3 TIMES DAILY TAKING FAMOTIDINE 40 MG TABLET (PRIOR AUTH: RX REF#:[id number]) ORAL 3 TIMES DAILY TAKING METOPROLOL TARTRATE 25 MG TABLET 1 TABLET ORALLY DAILY TAKING BRILINTA 60 MG TABLET 1 TABLET ORALLY TWICE A DAY, NOTES: PT UNSURE OF DOSE TAKING CLOPIDOGREL BISULFATE 75 MG TABLET 1 TABLET ORALLY ONCE A DAY PAST MEDICAL HISTORY CARDIAC STENTS CHRONIC LOW BACK PAIN ALLERGIES N.K.D.A. SURGICAL HISTORY SPINAL CORD STIMULATOR [address] 2012 2 HEART STENTS 2018 FAMILY HISTORY FATHER: , DIAGNOSED WITH UNSPECIFIED HEART DISEASE MOTHER: SIBLINGS: , DIABETES, UNSPECIFIED HEART DISEASE 2 BROTHER(S) . 2DAUGHTER(S) . BROTHERS 1 DM, 1 HEART DISEASE. SOCIAL HISTORY GENERAL: TOBACCO USE ARE YOU A:FORMER SMOKER HOW LONG HAS IT BEEN SINCE YOU LAST SMOKED?1-5 YEARS DIET: REGULAR. LANGUAGE LANGUAGES SPOKEN:PERSIAN RECREATIONAL DRUG USE DRUG USE?YES HOW OFTEN AND HOW MUCH? SMOKES POT EVERY NIGHT BEFORE HE GOES TO BED EXERCISE: WALKS. LEARNING BARRIERS / SPECIAL NEEDS BARRIERS TO LEARNING?NO HEARING IMPAIRED?NO VISION IMPAIRED?YES COGNITIVELY IMPAIRED?NO :CORRECTIVE LENSES READINESS TO LEARN?YES LEARNING PREFERENCES?NO LEARNING CAPABILITIES PRESENT?YES EMOTIONAL BARRIERS?NO SPECIAL DEVICES?NO BOMBSIGHT SPECIALIST NEEDED?NO PAIN CLINIC PFS, CLERGY, PUBLIC HEALTH REFERRALS PFS REFERRAL NEEDED?NO CLERGY REFERRAL NEEDED?NO PUBLIC HEALTH REFERRAL NEEDED?NO WAS THE PROVIDER NOTIFIED OF ANY PERTINENT INFO?YES HAS THE PATIENT BEEN EDUCATED REGARDING HIS/HER PLAN OF CARE?YES HAS THE PATIENT BEEN EDUCATED REGARDING PAIN, THE RISK FOR PAIN, THE IMPORTANCE OF EFFECTIVE PAIN MANAGEMENT, AND THE PAIN ASSESSMENT PROCESS?YES LATEX QUESTIONNAIRE LATEX ALLERGY : HAVE YOU EVER DEVELOPED ANY TYPE OF REACTION AFTER HANDLING LATEX PRODUCTS SUCH RUBBER GLOVES, CONDOMS, DIAPHRAGMS, BALLOONS, SOCKS, OR UNDERWEAR?NO LATEX ALLERGY : HAVE YOU EVER DEVELOPED ANY TYPE OF REACTION DURING OR AFTER DENTAL APPOINTMENT, VAGINAL/RECTAL EXAMINATION, SURGICAL PROCEDURE, OR ANY OTHER EXPOSURE?NO LATEX RISK : HAVE YOU EVER HAD ANY DIFFICULTY BREATHING OR HIVES AFTER EATING OR HANDLING ANY FRUITS, OR VEGETABLES; SUCH KIWI, BANANAS, STONE FRUITS, OR CHESTNUTSNO LATEX RISK : DO YOU HAVE A PREVIOUS PERSONAL HISTORY OF MORE THAN NINE SURGERIES, SPINA BIFIDA, OR REPEATED CATHERIZATIONS? NO LATEX RISK : ARE YOU FREQUENTLY EXPOSED TO LATEX PRODUCTS IN YOUR OCCUPATION?NO CAFFEINE CAFFEINE USE?NO ADVANCE DIRECTIVE ADVANCE DIRECTIVE DISCUSSED WITH PATIENT:YES GARETT MOSLEY [phone] SPIRITISM [id number] YAZIDISM MARITAL STATUS: . ALCOHOL SCREENING POINTS: 2, INTERPRETATION: NEGATIVE. REVIEWED WITH PT 12/01/18 9434 ABBY. HOSPITALIZATION/MAJOR DIAGNOSTIC PROCEDURE SURGERY RELATED REVIEW OF SYSTEMS REVIEWED BY: PROVIDER: LEV RENTERIA . CONSTITUTIONAL: ANY CHANGE IN YOUR MEDICAL CONDITION? NO . CHILLS NO . FEVER NO . INFECTION: DO YOU HAVE NEW INFECTIONS? NO . DO YOU HAVE HISTORY OF MRSA? NO . MUSCULOSKELETAL: ANY NEW PATTERNS OF PAIN OR NUMBNESS? NO- STATES PAIN IS CONTROLLED WITH MEDS AND DCS . GASTROENTEROLOGY: ANY NEW CHANGE IN BOWEL CONTROL? NO . GENITOURINARY: ANY NEW CHANGE IN BLADDER CONTROL? NO . IS THERE A CHANCE YOU COULD BE ? NO . HEMATOLOGY/LYMPH: DO YOU TAKE ANY BLOOD THINNERS? (FOR EXAMPLE- COUMADIN, PLAVIX, AGGRENOX, PLATEL, PRADAXA, OR XARELTO) YES- PLAVIX . WHEN WAS YOUR LAST DOSE? DATE:12/01/18 TIME: 0400 . NEUROLOGY: HAVE YOU FALLEN IN THE PAST 12 MONTHS? YES- STATES HE HAS FALLEN A COUPLE OF TIMES, NO INJURIES . ANY NEW EXTREMITY NUMBNESS OR WEAKNESS? NO . CARDIOLOGY: DO YOU HAVE A PACEMAKER OR DEFIBRILLATOR? NO . RESPIRATORY: HAVE YOU BEEN SICK IN THE PAST WEEK? NO . FEVER NO . FLU LIKE SYMPTOMS? NO . COUGH NO . INTEGUMENTARY: DO YOU HAVE ANY RASHES OR OPEN SORES? NO . ALLERGIC/IMMUNO: ARE YOU ALLERGIC TO IV DYE? NO . ANY NEW ALLERGIES? NO . PSYCHIATRIC: DO YOU HAVE THOUGHTS OF HURTING YOURSELF OR SOMEONE ELSE? NO . ARE YOU ABUSED, NEGLECTED, OR IN AN UNSAFE ENVIRONMENT? NO . ENDOCRINOLOGY: ARE YOU DIABETIC? NO . OTHER: DO YOU NEED ANY PRESCRIPTIONS? NO . IF YES, PLEASE LIST: ____ . ANY NEW PROBLEMS WITH YOUR MEDICATIONS? NO . WHEN DID YOU LAST EAT? ____ . WHEN DID YOU LAST DRINK? ____ . WHAT DID YOU LAST DRINK? ____ . NAME OF PERSON DRIVING YOU HOME? ____ . DO YOU HAVE ANY OTHER QUESTIONS OR CONCERNS NO- STATES NO CONCERNS, STATES HIS DCS AND MEDS ORDERED BY PCP CONTROLL HIS PAIN . VITAL SIGNS WT 193.8 LBS, HT 5'7", BMI 30.35 INDEX, BP 118/77 MM HG, HR 103 /MIN, RR 18 /MIN, TEMP 96.5 F, OXYGEN SAT % 98%, SAFE IN ENV? (Y/N) YES, NA INITIALS DC 08:44, REVIEWED BY: ABBY. EXAMINATION GENERAL EXAMINATION: LUNGS:LUNG SOUNDS ARE CLEAR. HEART:HEART RATE REGULAR. MUSCULOSKELETAL:PALPATION- POSITIVE TENDERNESS OVER R PARASPINAL REGION. INCISIONAL AREAS WELL HEALED W NO REDNESS. NON-TENDER., MUSCLE STRENGTH TESTING 5/5 R LEG,2/5L, RANGE OF MOTION L/S SPINE LIMITED W INCREASE PAIN W FLEXION AND EXTENSION.. DIAGNOSTIC: . ASSESSMENTS LOW BACK PAIN OF OVER 3 MONTHS DURATION - M54.5 (PRIMARY) OTHER CHRONIC PAIN - G89.29 TREATMENT LOW BACK PAIN OF OVER 3 MONTHS DURATION NOTES: CONTINUE CONSERVATIVE CARE. PROCEDURES PN WORKMANS' COMP OPINION IN YOUR OPINION, WAS THE INCIDENT THAT THE PATIENT DESCRIBED THE COMPETENT MEDICAL CAUSE OF THIS INJURY/ILLNESS? YES ARE THE PATIENT'S COMPLAINTS CONSISTENT WITH HIS/HER HISTORY OF THE INJURY/ILLNESS? YES IS THE PATIENT'S HISTORY OF THE INJURY/ILLNESS CONSISTENT WITH YOUR OBJECTIVE FINDING? YES WHAT IS THE PERCENTAGE OF TEMPORARY IMPAIRMENT? MODERATE TO MARKED = 66.7% IS THE PATIENT WORKING? NO DOCTOR ON SITE: ELMA IVEY MD PROCEDURE CODES FA211 ESTABILISHED PATIENT [facility] CHARGE DISPOSITION & COMMUNICATION FOLLOW UP 3 MONTHS (REASON: W/C DCS F/U) ELECTRONICALLY SIGNED BY MYRA GEORGE ON 12/01/2018 AT 10:22 AM EDT DISCLAIMER : THIS IS A VISIT SUMMARY EXTRACTED FROM THE [employer] CHART. IT IS NOT A COPY OF THE [employer] PROGRESS NOTE. MALGORZATA
== END ==
LOC: M PAIN 08:45
PROVIDERS: ATTEND Nurse Practitioner Family
DX: M54.5 Low back pain (principal); G89.29 Other chronic pain; Z95.5 Presence of coronary angioplasty implant and graft; Z87.891 Personal history of nicotine dependence; Z79.01 Long term (current) use of anticoagulants; Z79.899 Other long term (current) drug therapy

== ENCOUNTER → 2019-02-24 | Outpatient (CLI) | payer OTHER ==
--- NOTE | 2019-03-07 03:10 | ECWPNPC ---
PATIENT NAME: JOSE MOSLEY : 1950 GENDER: MALE VISIT DATE: 02/24/2019 DISCHARGE DATE: 02/24/19912 VISIT LOCKED DATE TIME: PHYSICIAN: LEV BLEVINS RESOURCE: LEV BLEVINS REASON FOR APPOINTMENT 1. W/C DCS F/U HISTORY OF PRESENT ILLNESS HISTORY OF PRESENT ILLNESS: HERE FOR F/U FOR CHRONIC PAIN W HX OF WORK RELATED INJURY 1997.RATING PAIN VAS 5-7/10.DESCRIBES PAIN CONSTANT SHARP AND ACHING.USING DCS DAILY THAT IS HELPFUL.MAY REQUIRE ADJUSTMENTS AND WE WILL ASK REP. TO CONTACT PATIENT.USING HYDROCODONE 10/325 APROX. 3 TAB PER DAY BY PRIMARY CARE. CONTINUES TO REPORT DOING OK WITH CURRENT REGIMEN.DENIES SIDE EFFECTS. PAIN THE PATIENT DESCRIBES THE PAIN... FALL RISK SCREENING: SCREENING :NO FALLS REPORTED IN THE LAST YEAR CURRENT MEDICATIONS TAKING HYDROCODONE-ACETAMINOPHEN 10-325 MG TABLET (SCHEDULE II DRUG) (PRIOR AUTH: RX REF#:[id number]) ORALLY UP TO 6 PER DAY NEEDED TAKING LYRICA 150 MG CAPSULE (SCHEDULE V DRUG) (PRIOR AUTH: RX REF#:[id number]) ORAL 3 TIMES DAILY TAKING METOPROLOL TARTRATE 25 MG TABLET 1 TABLET ORALLY DAILY TAKING BACLOFEN 10 MG TABLET (PRIOR AUTH: RX REF#:[id number]) ORAL 3 TIMES DAILY TAKING AMITRIPTYLINE HCL 25 MG TABLET 2 TABLETS (PRIOR AUTH: RX REF#:[id number]) ORAL AT BEDTIME TAKING FAMOTIDINE 40 MG TABLET (PRIOR AUTH: RX REF#:[id number]) ORAL 3 TIMES DAILY TAKING BRILINTA 60 MG TABLET 1 TABLET ORALLY TWICE A DAY, NOTES: PT UNSURE OF DOSE TAKING CLOPIDOGREL BISULFATE 75 MG TABLET 1 TABLET ORALLY ONCE A DAY MEDICATION LIST REVIEWED AND RECONCILED WITH THE PATIENT PAST MEDICAL HISTORY CARDIAC STENTS CHRONIC LOW BACK PAIN ALLERGIES N.K.D.A. SURGICAL HISTORY SPINAL CORD STIMULATOR [address] 2012 2 HEART STENTS 2018 FAMILY HISTORY FATHER: , DIAGNOSED WITH UNSPECIFIED HEART DISEASE MOTHER: SIBLINGS: , DIABETES, UNSPECIFIED HEART DISEASE 2 BROTHER(S) . 2DAUGHTER(S) . BROTHERS 1 DM, 1 HEART DISEASE. SOCIAL HISTORY GENERAL: TOBACCO USE ARE YOU A:FORMER SMOKER HOW LONG HAS IT BEEN SINCE YOU LAST SMOKED?1-5 YEARS DIET: REGULAR. LANGUAGE LANGUAGES SPOKEN:NEW ZEALANDER RECREATIONAL DRUG USE DRUG USE?YES HOW OFTEN AND HOW MUCH? SMOKES POT EVERY NIGHT BEFORE HE GOES TO BED EXERCISE: WALKS. LEARNING BARRIERS / SPECIAL NEEDS BARRIERS TO LEARNING?NO HEARING IMPAIRED?NO VISION IMPAIRED?YES COGNITIVELY IMPAIRED?NO :CORRECTIVE LENSES READINESS TO LEARN?YES LEARNING PREFERENCES?NO LEARNING CAPABILITIES PRESENT?YES EMOTIONAL BARRIERS?NO SPECIAL DEVICES?NO LAY OUT MACHINE OPERATOR NEEDED?NO PAIN CLINIC PFS, CLERGY, PUBLIC HEALTH REFERRALS PFS REFERRAL NEEDED?NO CLERGY REFERRAL NEEDED?NO PUBLIC HEALTH REFERRAL NEEDED?NO WAS THE PROVIDER NOTIFIED OF ANY PERTINENT INFO?YES HAS THE PATIENT BEEN EDUCATED REGARDING HIS/HER PLAN OF CARE?YES HAS THE PATIENT BEEN EDUCATED REGARDING PAIN, THE RISK FOR PAIN, THE IMPORTANCE OF EFFECTIVE PAIN MANAGEMENT, AND THE PAIN ASSESSMENT PROCESS?YES LATEX QUESTIONNAIRE LATEX ALLERGY : HAVE YOU EVER DEVELOPED ANY TYPE OF REACTION AFTER HANDLING LATEX PRODUCTS SUCH RUBBER GLOVES, CONDOMS, DIAPHRAGMS, BALLOONS, SOCKS, OR UNDERWEAR?NO LATEX ALLERGY : HAVE YOU EVER DEVELOPED ANY TYPE OF REACTION DURING OR AFTER DENTAL APPOINTMENT, VAGINAL/RECTAL EXAMINATION, SURGICAL PROCEDURE, OR ANY OTHER EXPOSURE?NO LATEX RISK : HAVE YOU EVER HAD ANY DIFFICULTY BREATHING OR HIVES AFTER EATING OR HANDLING ANY FRUITS, OR VEGETABLES; SUCH KIWI, BANANAS, STONE FRUITS, OR CHESTNUTSNO LATEX RISK : DO YOU HAVE A PREVIOUS PERSONAL HISTORY OF MORE THAN NINE SURGERIES, SPINA BIFIDA, OR REPEATED CATHERIZATIONS? NO LATEX RISK : ARE YOU FREQUENTLY EXPOSED TO LATEX PRODUCTS IN YOUR OCCUPATION?NO CAFFEINE CAFFEINE USE?NO ADVANCE DIRECTIVE ADVANCE DIRECTIVE DISCUSSED WITH PATIENT:YES GARETT MOSLEY [phone] HOAHAOISM [id number] MANDAEN MARITAL STATUS: . ALCOHOL SCREENING POINTS: 2, INTERPRETATION: NEGATIVE. REVIEWED WITH PT 12/01/18 6487 NLJ. HOSPITALIZATION/MAJOR DIAGNOSTIC PROCEDURE SURGERY RELATED REVIEW OF SYSTEMS REVIEWED BY: PROVIDER: LEV RENTERIA . CONSTITUTIONAL: ANY CHANGE IN YOUR MEDICAL CONDITION? NO . CHILLS NO . FEVER NO . INFECTION: DO YOU HAVE NEW INFECTIONS? NO . DO YOU HAVE HISTORY OF MRSA? NO . MUSCULOSKELETAL: ANY NEW PATTERNS OF PAIN OR NUMBNESS? YES, WORSE FOR PAST 2 WEEKS - PAIN ALSO GOING UP HIGHER IN BACK . GASTROENTEROLOGY: ANY NEW CHANGE IN BOWEL CONTROL? NO . GENITOURINARY: ANY NEW CHANGE IN BLADDER CONTROL? YES - FREQUENCY . IS THERE A CHANCE YOU COULD BE ? NO . HEMATOLOGY/LYMPH: DO YOU TAKE ANY BLOOD THINNERS? (FOR EXAMPLE- COUMADIN, PLAVIX, AGGRENOX, PLATEL, PRADAXA, OR XARELTO) YES . WHEN WAS YOUR LAST DOSE? DATE: TIME: . NEUROLOGY: HAVE YOU FALLEN IN THE PAST 12 MONTHS? YES . ANY NEW EXTREMITY NUMBNESS OR WEAKNESS? NO . CARDIOLOGY: DO YOU HAVE A PACEMAKER OR DEFIBRILLATOR? NO . RESPIRATORY: HAVE YOU BEEN SICK IN THE PAST WEEK? NO . FEVER NO . FLU LIKE SYMPTOMS? NO . COUGH NO . INTEGUMENTARY: DO YOU HAVE ANY RASHES OR OPEN SORES? NO . ALLERGIC/IMMUNO: ARE YOU ALLERGIC TO IV DYE? NO . ANY NEW ALLERGIES? NO . PSYCHIATRIC: DO YOU HAVE THOUGHTS OF HURTING YOURSELF OR SOMEONE ELSE? NO . ARE YOU ABUSED, NEGLECTED, OR IN AN UNSAFE ENVIRONMENT? NO . ENDOCRINOLOGY: ARE YOU DIABETIC? NO . OTHER: DO YOU NEED ANY PRESCRIPTIONS? NO . IF YES, PLEASE LIST: ____ . ANY NEW PROBLEMS WITH YOUR MEDICATIONS? NO . WHEN DID YOU LAST EAT? ____ . WHEN DID YOU LAST DRINK? ____ . WHAT DID YOU LAST DRINK? ____ . NAME OF PERSON DRIVING YOU HOME? ____ . DO YOU HAVE ANY OTHER QUESTIONS OR CONCERNS NO . VITAL SIGNS WT 197 LBS, HT 5'7", BMI 30.85 INDEX, BP 140/75 MM HG, HR 93 /MIN, RR 16 /MIN, TEMP 97.4 F, OXYGEN SAT % 97%, REVIEWED BY: BINA. EXAMINATION GENERAL EXAMINATION: LUNGS:LUNG SOUNDS ARE CLEAR. HEART:HEART RATE REGULAR. MUSCULOSKELETAL:PALPATION- POSITIVE TENDERNESS OVER R PARASPINAL REGION. INCISIONAL AREAS WELL HEALED W NO REDNESS. NON-TENDER., MUSCLE STRENGTH TESTING 5/5 R LEG,2/5L, RANGE OF MOTION L/S SPINE LIMITED W INCREASE PAIN W FLEXION AND EXTENSION.. DIAGNOSTIC: . ASSESSMENTS LOW BACK PAIN OF OVER 3 MONTHS DURATION - M54.5 (PRIMARY) OTHER CHRONIC PAIN - G89.29 TREATMENT LOW BACK PAIN OF OVER 3 MONTHS DURATION NOTES: PLEASE HAVE BRAULIO CONTACT PATIENT [employer] DCS. PROCEDURES PN WORKMANS' COMP OPINION IN YOUR OPINION, WAS THE INCIDENT THAT THE PATIENT DESCRIBED THE COMPETENT MEDICAL CAUSE OF THIS INJURY/ILLNESS? YES ARE THE PATIENT'S COMPLAINTS CONSISTENT WITH HIS/HER HISTORY OF THE INJURY/ILLNESS? YES IS THE PATIENT'S HISTORY OF THE INJURY/ILLNESS CONSISTENT WITH YOUR OBJECTIVE FINDING? YES WHAT IS THE PERCENTAGE OF TEMPORARY IMPAIRMENT? MODERATE TO MARKED = 66.7% IS THE PATIENT WORKING? NO DOCTOR ON SITE: ELMA IVEY MD PROCEDURE CODES FA211 ESTABILISHED PATIENT [facility] FACILITY CHARGE DISPOSITION & COMMUNICATION FOLLOW UP 3 MONTHS (REASON: PLEASE HAVE BRAULIO CONTACT PATIENT [employer] [facility]) ELECTRONICALLY SIGNED BY MYRA GEORGE ON 03/06/2019 AT 09:16 AM EST DISCLAIMER : THIS IS A VISIT SUMMARY EXTRACTED FROM THE [employer] CHART. IT IS NOT A COPY OF THE [employer] PROGRESS NOTE. MALGORZATA
== END ==
LOC: M PAIN 08:45
PROVIDERS: ATTEND Nurse Practitioner Family
DX: M54.5 Low back pain (principal); G89.29 Other chronic pain

== ENCOUNTER → 2019-05-26 | Outpatient (CLI) | payer OTHER ==
--- NOTE | 2019-06-10 04:28 | ECWPNPC ---
PATIENT NAME: JOSE MOSLEY : 1950 GENDER: MALE VISIT DATE: 05/26/2019 DISCHARGE DATE: 05/26/19932 VISIT LOCKED DATE TIME: PHYSICIAN: LEV BLEVINS RESOURCE: LEV BLEVINS REASON FOR APPOINTMENT 1. 3 MONTHS HISTORY OF PRESENT ILLNESS HISTORY OF PRESENT ILLNESS: HERE FOR F/U FOR CHRONIC PAIN W HX OF WORK RELATED INJURY 1997.RATING PAIN VAS 5-6/10.DESCRIBES PAIN CONSTANT SHARP AND ACHING.WAS USING DCS DAILY THAT WAS HELPFUL UP UNTIL 1 MONTH AGO WHEN IT STOPPED WORKING.[employer] REP.HAS BEEN NOTIFIED AND IS SUPPOSE TO MEET HIM HERE TODAY.. MAY REQUIRE ADJUSTMENTS AND WE WILL ASK REP. TO CONTACT PATIENT.USING HYDROCODONE 10/325 APROX. 6 TAB PER DAY BY PRIMARY CARE. CONTINUES TO REPORT DOING OK WITH CURRENT REGIMEN.DENIES SIDE EFFECTS. PAIN THE PATIENT DESCRIBES THE PAIN... FALL RISK SCREENING: SCREENING :NO FALLS REPORTED IN THE LAST YEAR CURRENT MEDICATIONS TAKING HYDROCODONE-ACETAMINOPHEN 10-325 MG TABLET (SCHEDULE II DRUG) (PRIOR AUTH: RX REF#:[id number]) ORALLY UP TO 6 PER DAY NEEDED TAKING LYRICA 150 MG CAPSULE (SCHEDULE V DRUG) (PRIOR AUTH: RX REF#:[id number]) ORAL 3 TIMES DAILY TAKING METOPROLOL TARTRATE 25 MG TABLET 1 TABLET ORALLY DAILY TAKING BACLOFEN 10 MG TABLET (PRIOR AUTH: RX REF#:[id number]) ORAL 3 TIMES DAILY TAKING AMITRIPTYLINE HCL 25 MG TABLET 2 TABLETS (PRIOR AUTH: RX REF#:[id number]) ORAL AT BEDTIME TAKING FAMOTIDINE 40 MG TABLET (PRIOR AUTH: RX REF#:[id number]) ORAL 3 TIMES DAILY TAKING BRILINTA 60 MG TABLET 1 TABLET ORALLY TWICE A DAY, NOTES: PT UNSURE OF DOSE NOT-TAKING CLOPIDOGREL BISULFATE 75 MG TABLET 1 TABLET ORALLY ONCE A DAY MEDICATION LIST REVIEWED AND RECONCILED WITH THE PATIENT PAST MEDICAL HISTORY CARDIAC STENTS CHRONIC LOW BACK PAIN ALLERGIES N.K.D.A. SURGICAL HISTORY SPINAL CORD STIMULATOR [address] 2012 2 HEART STENTS 2018 FAMILY HISTORY FATHER: , DIAGNOSED WITH UNSPECIFIED HEART DISEASE MOTHER: SIBLINGS: , UNSPECIFIED HEART DISEASE, DIABETES 2 BROTHER(S) . 2DAUGHTER(S) . BROTHERS 1 DM, 1 HEART DISEASE. SOCIAL HISTORY GENERAL: TOBACCO USE ARE YOU A:FORMER SMOKER HOW LONG HAS IT BEEN SINCE YOU LAST SMOKED?1-5 YEARS DIET: REGULAR. LANGUAGE LANGUAGES SPOKEN:GREEK RECREATIONAL DRUG USE DRUG USE?YES HOW OFTEN AND HOW MUCH? SMOKES POT EVERY NIGHT BEFORE HE GOES TO BED EXERCISE: WALKS. LEARNING BARRIERS / SPECIAL NEEDS BARRIERS TO LEARNING?NO HEARING IMPAIRED?NO VISION IMPAIRED?YES COGNITIVELY IMPAIRED?NO :CORRECTIVE LENSES READINESS TO LEARN?YES LEARNING PREFERENCES?NO LEARNING CAPABILITIES PRESENT?YES EMOTIONAL BARRIERS?NO SPECIAL DEVICES?NO EMTS NEEDED?NO PAIN CLINIC PFS, CLERGY, PUBLIC HEALTH REFERRALS PFS REFERRAL NEEDED?NO CLERGY REFERRAL NEEDED?NO PUBLIC HEALTH REFERRAL NEEDED?NO WAS THE PROVIDER NOTIFIED OF ANY PERTINENT INFO?YES HAS THE PATIENT BEEN EDUCATED REGARDING HIS/HER PLAN OF CARE?YES HAS THE PATIENT BEEN EDUCATED REGARDING PAIN, THE RISK FOR PAIN, THE IMPORTANCE OF EFFECTIVE PAIN MANAGEMENT, AND THE PAIN ASSESSMENT PROCESS?YES LATEX QUESTIONNAIRE LATEX ALLERGY : HAVE YOU EVER DEVELOPED ANY TYPE OF REACTION AFTER HANDLING LATEX PRODUCTS SUCH RUBBER GLOVES, CONDOMS, DIAPHRAGMS, BALLOONS, SOCKS, OR UNDERWEAR?NO LATEX ALLERGY : HAVE YOU EVER DEVELOPED ANY TYPE OF REACTION DURING OR AFTER DENTAL APPOINTMENT, VAGINAL/RECTAL EXAMINATION, SURGICAL PROCEDURE, OR ANY OTHER EXPOSURE?NO LATEX RISK : HAVE YOU EVER HAD ANY DIFFICULTY BREATHING OR HIVES AFTER EATING OR HANDLING ANY FRUITS, OR VEGETABLES; SUCH KIWI, BANANAS, STONE FRUITS, OR CHESTNUTSNO LATEX RISK : DO YOU HAVE A PREVIOUS PERSONAL HISTORY OF MORE THAN NINE SURGERIES, SPINA BIFIDA, OR REPEATED CATHERIZATIONS? NO LATEX RISK : ARE YOU FREQUENTLY EXPOSED TO LATEX PRODUCTS IN YOUR OCCUPATION?NO DATE ASKED : 05/26/2019 CAFFEINE CAFFEINE USE?NO ADVANCE DIRECTIVE ADVANCE DIRECTIVE DISCUSSED WITH PATIENT:YES GARETT MOSLEY [phone] RASTAFARI [id number] ZOROASTRIANISM MARITAL STATUS: . ALCOHOL SCREENING POINTS: 2, INTERPRETATION: NEGATIVE. HOSPITALIZATION/MAJOR DIAGNOSTIC PROCEDURE SURGERY RELATED REVIEW OF SYSTEMS REVIEWED BY: PROVIDER: LEV RENTERIA . CONSTITUTIONAL: ANY CHANGE IN YOUR MEDICAL CONDITION? NO . CHILLS NO . FEVER NO . INFECTION: DO YOU HAVE NEW INFECTIONS? NO . DO YOU HAVE HISTORY OF MRSA? NO . MUSCULOSKELETAL: ANY NEW PATTERNS OF PAIN OR NUMBNESS? NO . GASTROENTEROLOGY: ANY NEW CHANGE IN BOWEL CONTROL? NO . GENITOURINARY: ANY NEW CHANGE IN BLADDER CONTROL? NO . IS THERE A CHANCE YOU COULD BE ? NO . HEMATOLOGY/LYMPH: DO YOU TAKE ANY BLOOD THINNERS? (FOR EXAMPLE- COUMADIN, PLAVIX, AGGRENOX, PLATEL, PRADAXA, OR XARELTO) PT STATES THAT HE STOPPED TAKING 2 MONTHS AGO . WHEN WAS YOUR LAST DOSE? DATE: TIME: . NEUROLOGY: HAVE YOU FALLEN IN THE PAST 12 MONTHS? NO . ANY NEW EXTREMITY NUMBNESS OR WEAKNESS? NO . CARDIOLOGY: DO YOU HAVE A PACEMAKER OR DEFIBRILLATOR? [facility] . RESPIRATORY: HAVE YOU BEEN SICK IN THE PAST WEEK? NO . FEVER NO . FLU LIKE SYMPTOMS? NO . COUGH NO . INTEGUMENTARY: DO YOU HAVE ANY RASHES OR OPEN SORES? NO . ALLERGIC/IMMUNO: ARE YOU ALLERGIC TO IV DYE? NO . ANY NEW ALLERGIES? NO . PSYCHIATRIC: DO YOU HAVE THOUGHTS OF HURTING YOURSELF OR SOMEONE ELSE? NO . ARE YOU ABUSED, NEGLECTED, OR IN AN UNSAFE ENVIRONMENT? NO . ENDOCRINOLOGY: ARE YOU DIABETIC? NO . OTHER: DO YOU NEED ANY PRESCRIPTIONS? NO . IF YES, PLEASE LIST: ____ . ANY NEW PROBLEMS WITH YOUR MEDICATIONS? NO . WHEN DID YOU LAST EAT? ____ . WHEN DID YOU LAST DRINK? ____ . WHAT DID YOU LAST DRINK? ____ . NAME OF PERSON DRIVING YOU HOME? ____ . DO YOU HAVE ANY OTHER QUESTIONS OR CONCERNS PT STATES THAT DCS IS NOT WORKING PROPERLY, WANTS TO MEET WITH BRAULIO DUMONT FROM [employer] . VITAL SIGNS WT 203.8 LBS, HT 5'7", BMI 31.92 INDEX, BP 142/80 MM HG, HR 84 /MIN, RR 18 /MIN, TEMP 98.6 F, OXYGEN SAT % 94, SAFE IN ENV? (Y/N) Y, REVIEWED BY: MARTI. EXAMINATION GENERAL EXAMINATION: GENERALAWAKE,ALERT ,PLEASANT . PSYCHAFFECT NORMAL . LUNGS:LUNG VARGAS ARE CLEAR TO AUSCULTATION BILATERALLY. GOOD MOVEMENT OF AIR . HEART:S1, S2 IN A REGULAR RATE AND RHYTHM. NO SIGNIFICANT MURMURS, RUBS OR GALLOPS NOTED . ASSESSMENTS LOW BACK PAIN OF OVER 3 MONTHS DURATION - M54.5 (PRIMARY) OTHER CHRONIC PAIN - G89.29 PROCEDURES PN WORKMANS' COMP OPINION IN YOUR OPINION, WAS THE INCIDENT THAT THE PATIENT DESCRIBED THE COMPETENT MEDICAL CAUSE OF THIS INJURY/ILLNESS? YES ARE THE PATIENT'S COMPLAINTS CONSISTENT WITH HIS/HER HISTORY OF THE INJURY/ILLNESS? YES IS THE PATIENT'S HISTORY OF THE INJURY/ILLNESS CONSISTENT WITH YOUR OBJECTIVE FINDING? YES WHAT IS THE PERCENTAGE OF TEMPORARY IMPAIRMENT? MODERATE TO MARKED = 66.7% IS THE PATIENT WORKING? NO DOCTOR ON SITE: ELMA IVEY MD PREVENTIVE MEDICINE PAIN CLINIC TEACHING: THE PATIENT HAS BEEN EDUCATED REGARDING HIS/HER PLAN OF CARE : DISCUSSED AND REVIEWED WRITTEN AND VERBAL INSTRUCTIONS WITH PATIENT REGARDING TREATMENT PLAN, PT ACKNOWLEDGED UNDERSTANDING. DS PROCEDURE CODES FA211 ESTABILISHED PATIENT [facility] CHARGE DISPOSITION & COMMUNICATION FOLLOW UP 3 MONTHS (REASON: W/C MED MGMNT) ELECTRONICALLY SIGNED BY MYRA GEORGE ON 06/09/2019 AT 03:39 PM EDT DISCLAIMER : THIS IS A VISIT SUMMARY EXTRACTED FROM THE [employer] CHART. IT IS NOT A COPY OF THE [employer] PROGRESS NOTE. MALGORZATA
== END ==
LOC: M PAIN 08:45
PROVIDERS: ATTEND Nurse Practitioner Family
DX: M54.5 Low back pain (principal); G89.29 Other chronic pain; Z79.891 Long term (current) use of opiate analgesic; Z79.899 Other long term (current) drug therapy; Z95.5 Presence of coronary angioplasty implant and graft; Z87.891 Personal history of nicotine dependence; Z96.82 Presence of neurostimulator

== ENCOUNTER → 2019-09-10 | Outpatient (CLI) | payer OTHER ==
--- NOTE | 2019-09-22 03:41 | ECWPNPC ---
PATIENT NAME: JOSE MOSLEY : 1950 GENDER: MALE VISIT DATE: 09/10/2019 DISCHARGE DATE: 09/10/19932 VISIT LOCKED DATE TIME: PHYSICIAN: LEV BLEVINS RESOURCE: LEV BLEVINS REASON FOR APPOINTMENT 1. W/C BACK HISTORY OF PRESENT ILLNESS GENERAL: HERE FOR FOLLOW-UP OF CHRONIC LOW BACK PAIN. THIS IS A WORK RELATED INJURY WITH DATE OF INJURY 1997. 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 THIS HAS BEEN A PROBLEM AND HE HASN'T BEEN USING IT FOR THE PAST 2 OR 3 MONTHS. -. FALL RISK SCREENING: SCREENING :NO FALLS REPORTED IN THE LAST YEAR PAIN SCREENING: PATIENT HAS A COMPLAINT OF ACUTE OR CHRONIC PAIN :YES 09/10/19 INTENSITY OF PAIN (SCALE OF 1 TO 10):6 WHAT DOES YOUR PAIN FEEL LIKE:CONTINOUS, THROBBING PAIN IS INCREASED BY: ACTIVITY PAIN IS DECREASED BY: STANDING NURSING NOTE: -. PAIN CENTER INTAKE QUESTIONS: DO YOU HAVE A HISTORY OF MRSA? :NO DO YOU TAKE A BLOOD THINNERS? :NO DO YOU HAVE ANY BLEEDING DISORDERS? :NO ANY NEW NUMBNESS OR WEAKNESS IN YOUR LEGS OR ARMS? :YES LEFT LEG WEAKNESS ANY PACEMAKER,DEFIBRILLATOR, OR DORSAL COLUMN STIMULATOR? :YES DCS DO YOU HAVE ANY RASHES OR OPEN SORES? :NO ARE YOU ALLERGIC TO IV DYE? :NO ARE YOU DIABETIC? :NO ANY NEW PROBLEMS WITH YOUR MEDICATIONS? :NO HAVE YOU RECEIVED A VACCINE IN THE PAST 30 DAYS? :NO DO YOU PLAN TO RECEIVE A VACCINE IN THE NEXT 21 DAYS? :NO DO YOU NEED ANY PRESCRIPTION? :NO DO YOU TAKE ANY IMMUNOSUPPRESSIVE MEDICATIONS? :NO IS THERE A CHANCE YOU COULD BE ? :NO ARE YOU BREAST FEEDING? :NO CURRENT MEDICATIONS TAKING HYDROCODONE-ACETAMINOPHEN 10-325 MG TABLET (SCHEDULE II DRUG) (PRIOR AUTH: RX REF#:[id number]) ORALLY UP TO 6 PER DAY NEEDED TAKING LYRICA 150 MG CAPSULE (SCHEDULE V DRUG) (PRIOR AUTH: RX REF#:[id number]) ORAL 3 TIMES DAILY TAKING METOPROLOL TARTRATE 25 MG TABLET 1 TABLET ORALLY DAILY TAKING BACLOFEN 10 MG TABLET (PRIOR AUTH: RX REF#:[id number]) ORAL 3 TIMES DAILY TAKING AMITRIPTYLINE HCL 25 MG TABLET 2 TABLETS (PRIOR AUTH: RX REF#:[id number]) ORAL AT BEDTIME TAKING FAMOTIDINE 40 MG TABLET (PRIOR AUTH: RX REF#:[id number]) ORAL 3 TIMES DAILY TAKING BRILINTA 60 MG TABLET 1 TABLET ORALLY TWICE A DAY, NOTES: PT UNSURE OF DOSE NOT-TAKING CLOPIDOGREL BISULFATE 75 MG TABLET 1 TABLET ORALLY ONCE A DAY MEDICATION LIST REVIEWED AND RECONCILED WITH THE PATIENT PAST MEDICAL HISTORY CARDIAC STENTS CHRONIC LOW BACK PAIN ALLERGIES N.K.D.A. SURGICAL HISTORY SPINAL CORD STIMULATOR [address] 2012 2 HEART STENTS 2018 FAMILY HISTORY FATHER: , DIAGNOSED WITH UNSPECIFIED HEART DISEASE MOTHER: SIBLINGS: , UNSPECIFIED HEART DISEASE, DIABETES 2 BROTHER(S) . 2DAUGHTER(S) . BROTHERS 1 DM, 1 HEART DISEASE. SOCIAL HISTORY GENERAL: TOBACCO USE ARE YOU A:FORMER SMOKER HOW LONG HAS IT BEEN SINCE YOU LAST SMOKED?1-5 YEARS LATEX QUESTIONNAIRE LATEX ALLERGY : HAVE YOU EVER DEVELOPED ANY TYPE OF REACTION AFTER HANDLING LATEX PRODUCTS SUCH RUBBER GLOVES, CONDOMS, DIAPHRAGMS, BALLOONS, SOCKS, OR UNDERWEAR?NO LATEX ALLERGY : HAVE YOU EVER DEVELOPED ANY TYPE OF REACTION DURING OR AFTER DENTAL APPOINTMENT, VAGINAL/RECTAL EXAMINATION, SURGICAL PROCEDURE, OR ANY OTHER EXPOSURE?NO DATE ASKED : 05/26/2019 LATEX RISK : HAVE YOU EVER HAD ANY DIFFICULTY BREATHING OR HIVES AFTER EATING OR HANDLING ANY FRUITS, OR VEGETABLES; SUCH KIWI, BANANAS, STONE FRUITS, OR CHESTNUTSNO LATEX RISK : DO YOU HAVE A PREVIOUS PERSONAL HISTORY OF MORE THAN NINE SURGERIES, SPINA BIFIDA, OR REPEATED CATHERIZATIONS? NO LATEX RISK : ARE YOU FREQUENTLY EXPOSED TO LATEX PRODUCTS IN YOUR OCCUPATION?NO ALCOHOL SCREENING POINTS: 2, INTERPRETATION: NEGATIVE. RECREATIONAL DRUG USE DRUG USE?YES HOW OFTEN AND HOW MUCH? SMOKES POT EVERY NIGHT BEFORE HE GOES TO BED CAFFEINE CAFFEINE USE?NO RESTORATION [id number] BAPTIST LANGUAGE LANGUAGES SPOKEN:MALTESE LEARNING BARRIERS / SPECIAL NEEDS BARRIERS TO LEARNING?NO HEARING IMPAIRED?NO VISION IMPAIRED?YES COGNITIVELY IMPAIRED?NO :CORRECTIVE LENSES READINESS TO LEARN?YES LEARNING PREFERENCES?NO LEARNING CAPABILITIES PRESENT?YES EMOTIONAL BARRIERS?NO SPECIAL DEVICES?NO PLUG PASTER NEEDED?NO DIET: REGULAR. EXERCISE: WALKS. MARITAL STATUS: . PAIN CLINIC PFS, CLERGY, PUBLIC HEALTH REFERRALS PFS REFERRAL NEEDED?NO CLERGY REFERRAL NEEDED?NO PUBLIC HEALTH REFERRAL NEEDED?NO WAS THE PROVIDER NOTIFIED OF ANY PERTINENT INFO?YES HAS THE PATIENT BEEN EDUCATED REGARDING HIS/HER PLAN OF CARE?YES HAS THE PATIENT BEEN EDUCATED REGARDING PAIN, THE RISK FOR PAIN, THE IMPORTANCE OF EFFECTIVE PAIN MANAGEMENT, AND THE PAIN ASSESSMENT PROCESS?YES ADVANCE DIRECTIVE ADVANCE DIRECTIVE DISCUSSED WITH PATIENT:YES GARETT MOSLEY [phone] HOSPITALIZATION/MAJOR DIAGNOSTIC PROCEDURE SURGERY RELATED REVIEW OF SYSTEMS CONSTITUTIONAL: ANY RECENT FEVER NO . CHILLS NO . WEIGHT CHANGE OF UNKNOWN REASONS NO . GASTROENTEROLOGY: NEW UNEXPLAINABLE CHANGES IN BOWEL CONTROL NO . CONSTIPATION NO . GENITOURINARY: ANY NEW CHANGE IN BLADDER CONTROL? NO . NEUROLOGY: NEW ONSET DIZZINESS OR NEUROLOGICAL CHANGES NOT MENTIONED NO . NEW NUMBNESS OR PAIN PATTERNS NOT MENTIONED AND PERTINENT TO TODAY'S VISIT NO . CARDIOLOGY: NEW CHEST PRESSURE NO . NEW CHEST PAIN NO . RESPIRATORY: UNEXPLAINABLE COUGH NO . NEW SHORTNESS OF BREATH NO . VITAL SIGNS WT 196.8 LBS, HT 5'7", BMI 30.82 INDEX, BP 148/90 MM HG, HR 84 /MIN, RR 18 /MIN, TEMP 97.6 F, OXYGEN SAT % 95%, NA INITIALS SC 08:49. EXAMINATION GENERAL EXAMINATION: GENERALAWAKE,ALERT ,PLEASANT . PSYCHAFFECT NORMAL . LUNGS:LUNG VARGAS ARE CLEAR TO AUSCULTATION BILATERALLY. GOOD MOVEMENT OF AIR . HEART:S1, S2 IN A REGULAR RATE AND RHYTHM. NO SIGNIFICANT MURMURS, RUBS OR GALLOPS NOTED . ASSESSMENTS LOW BACK PAIN OF OVER 3 MONTHS DURATION - M54.5 (PRIMARY) OTHER CHRONIC PAIN - G89.29 PROCEDURES PN WORKMANS' COMP OPINION IN YOUR OPINION, WAS THE INCIDENT THAT THE PATIENT DESCRIBED THE COMPETENT MEDICAL CAUSE OF THIS INJURY/ILLNESS? YES ARE THE PATIENT'S COMPLAINTS CONSISTENT WITH HIS/HER HISTORY OF THE INJURY/ILLNESS? YES IS THE PATIENT'S HISTORY OF THE INJURY/ILLNESS CONSISTENT WITH YOUR OBJECTIVE FINDING? YES WHAT IS THE PERCENTAGE OF TEMPORARY IMPAIRMENT? MODERATE TO MARKED = 66.7% IS THE PATIENT WORKING? NO DOCTOR ON SITE: ELMA IVEY MD PROCEDURE CODES FA211 ESTABILISHED PATIENT 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 IT IS NOT A COPY OF THE [employer] PROGRESS NOTE. MALGORZATA
== END ==
LOC: M PAIN 08:45
PROVIDERS: ATTEND Nurse Practitioner Family
DX: M54.5 Low back pain (principal); G89.29 Other chronic pain

== ENCOUNTER → 2019-12-04 | Outpatient (CLI) | payer OTHER ==
[~2019-12-04] MED LIST changes: -ASPI81TA85 PO; +ASPI81TA86 PO
== END ==
LOC: M PAIN 09:47
PROVIDERS: ATTEND Anesthesiology
DX: M54.16 Radiculopathy, lumbar region (principal)

== ENCOUNTER → 2019-12-21 | Outpatient (CLI) | payer OTHER ==
--- NOTE | 2019-12-23 13:07 | ECWPNPC ---
PATIENT NAME: JOSE MOSLEY : 1950 GENDER: MALE VISIT DATE: 12/21/2019 DISCHARGE DATE: 12/21/19 1559 VISIT LOCKED DATE TIME: PHYSICIAN: ELMA CHE MD RESOURCE: ELMA CHE MD REASON FOR APPOINTMENT 1. CAROL W/DR Dasilva HISTORY OF PRESENT ILLNESS GENERAL: 69-YEAR-OLD MALE PATIENT. THE PATIENT HAS HAD A SPINAL CORD STIMULATOR PLACED MANY YEARS AGO. HE WAS HURT IN A WORK RELATED INJURY IN 1997. THE PATIENT STATES THAT THE SPINAL CORD STIMULATOR WAS WORKING UNTIL LAST YEAR WHEN IT STARTED TO GIVE HIM PROBLEMS AND THEN 6 MONTHS AGO THE BATTERY . THE PATIENT HAS A HISTORY OF CHRONIC BACK AND MAINLY LEFT LEG PAIN. THE PATIENT DESCRIBES THE PAIN ACHING AND CONTINUOUS WITH A PAIN SCORE RANGING FROM 5-10/10 DEPENDING ON PHYSICAL ACTIVITY. THE PATIENT STATES THAT THE PAIN IS AFFECTING HIS ACTIVITIES OF DAILY LIVING SUCH CLEANING HIS HOUSE. PATIENT DENIES UNEXPLAINABLE WEIGHT LOSS, FEVER, CHILLS, NEW CHANGES ON HIS URINARY OR BOWEL CONTROL. FALL RISK SCREENING: SCREENING :NO FALLS REPORTED IN THE LAST YEAR PAIN SCREENING: PATIENT HAS A COMPLAINT OF ACUTE OR CHRONIC PAIN :YES LOCATION OF PAIN:LOW BACK, LEG(S) LEFT LEG INTENSITY OF PAIN (SCALE OF 1 TO 10):5 WHAT DOES YOUR PAIN FEEL LIKE:ACHING, CONTINOUS DURATION:CONTINOUS, STEADY PAIN IS INCREASED BY:ACTIVITIES PAIN IS DECREASED BY:USE OF PAIN MEDICATIONS NURSING NOTE: -. PAIN CENTER INTAKE QUESTIONS: DO YOU HAVE A HISTORY OF MRSA? :NO DO YOU TAKE A BLOOD THINNERS? :NO DO YOU HAVE ANY BLEEDING DISORDERS? :NO ANY NEW NUMBNESS OR WEAKNESS IN YOUR LEGS OR ARMS? :NO ANY PACEMAKER,DEFIBRILLATOR, OR DORSAL COLUMN STIMULATOR? :YES DCS DO YOU HAVE ANY RASHES OR OPEN SORES? :NO ARE YOU ALLERGIC TO IV DYE? :NO ARE YOU DIABETIC? :NO ANY NEW PROBLEMS WITH YOUR MEDICATIONS? :NO HAVE YOU RECEIVED A VACCINE IN THE PAST 30 DAYS? :NO DO YOU PLAN TO RECEIVE A VACCINE IN THE NEXT 21 DAYS? :YES IF SO WHAT VACCINE AND WHEN? FLU VACCINE SOON DO YOU NEED ANY PRESCRIPTION? :NO DO YOU TAKE ANY IMMUNOSUPPRESSIVE MEDICATIONS? :NO IS THERE A CHANCE YOU COULD BE ? :NO ARE YOU BREAST FEEDING? :NO CURRENT MEDICATIONS TAKING HYDROCODONE-ACETAMINOPHEN 10-325 MG TABLET (SCHEDULE II DRUG) (PRIOR AUTH: RX REF#:[id number]) ORALLY UP TO 6 PER DAY NEEDED TAKING LYRICA 150 MG CAPSULE (SCHEDULE V DRUG) (PRIOR AUTH: RX REF#:[id number]) ORAL 3 TIMES DAILY TAKING METOPROLOL TARTRATE 25 MG TABLET 1 TABLET ORALLY DAILY TAKING BACLOFEN 10 MG TABLET (PRIOR AUTH: RX REF#:[id number]) ORAL 3 TIMES DAILY TAKING AMITRIPTYLINE HCL 25 MG TABLET 2 TABLETS (PRIOR AUTH: RX REF#:[id number]) ORAL AT BEDTIME TAKING OMEPRAZOLE 40 MG CAPSULE DELAYED RELEASE 1 CAPSULE 30 MINUTES BEFORE MORNING MEAL ORALLY ONCE A DAY TAKING ATORVASTATIN CALCIUM 40 MG TABLET 1 TABLET ORALLY ONCE A DAY TAKING ASPIRIN 81 MG TABLET CHEWABLE 1 TABLET ORALLY ONCE A DAY NOT-TAKING FAMOTIDINE 40 MG TABLET (PRIOR AUTH: RX REF#:[id number]) ORAL 3 TIMES DAILY NOT-TAKING BRILINTA 60 MG TABLET 1 TABLET ORALLY TWICE A DAY, NOTES: PT UNSURE OF DOSE NOT-TAKING CLOPIDOGREL BISULFATE 75 MG TABLET 1 TABLET ORALLY ONCE A DAY MEDICATION LIST REVIEWED AND RECONCILED WITH THE PATIENT PAST MEDICAL HISTORY CARDIAC STENTS CHRONIC LOW BACK PAIN ALLERGIES N.K.D.A. SURGICAL HISTORY SPINAL CORD STIMULATOR [address] 2012 2 HEART STENTS 2018 FAMILY HISTORY FATHER: , DIAGNOSED WITH UNSPECIFIED HEART DISEASE MOTHER: SIBLINGS: , UNSPECIFIED HEART DISEASE, DIABETES 2 BROTHER(S) . 2DAUGHTER(S) . BROTHERS 1 DM, 1 HEART DISEASE. SOCIAL HISTORY GENERAL: TOBACCO USE ARE YOU A:FORMER SMOKER HOW LONG HAS IT BEEN SINCE YOU LAST SMOKED?1-5 YEARS LATEX QUESTIONNAIRE LATEX ALLERGY : HAVE YOU EVER DEVELOPED ANY TYPE OF REACTION AFTER HANDLING LATEX PRODUCTS SUCH RUBBER GLOVES, CONDOMS, DIAPHRAGMS, BALLOONS, SOCKS, OR UNDERWEAR?NO LATEX ALLERGY : HAVE YOU EVER DEVELOPED ANY TYPE OF REACTION DURING OR AFTER DENTAL APPOINTMENT, VAGINAL/RECTAL EXAMINATION, SURGICAL PROCEDURE, OR ANY OTHER EXPOSURE?NO LATEX RISK : HAVE YOU EVER HAD ANY DIFFICULTY BREATHING OR HIVES AFTER EATING OR HANDLING ANY FRUITS, OR VEGETABLES; SUCH KIWI, BANANAS, STONE FRUITS, OR CHESTNUTSNO LATEX RISK : DO YOU HAVE A PREVIOUS PERSONAL HISTORY OF MORE THAN NINE SURGERIES, SPINA BIFIDA, OR REPEATED CATHERIZATIONS? NO LATEX RISK : ARE YOU FREQUENTLY EXPOSED TO LATEX PRODUCTS IN YOUR OCCUPATION?NO DATE ASKED : 12/21/2019 ALCOHOL SCREENING POINTS: 2, INTERPRETATION: NEGATIVE. RECREATIONAL DRUG USE DRUG USE?YES HOW OFTEN AND HOW MUCH? SMOKES POT EVERY NIGHT BEFORE HE GOES TO BED CAFFEINE CAFFEINE USE?NO SABIANIST [id number] SIKHISM LANGUAGE LANGUAGES SPOKEN:MONGOLIAN LEARNING BARRIERS / SPECIAL NEEDS BARRIERS TO LEARNING?NO HEARING IMPAIRED?NO VISION IMPAIRED?YES COGNITIVELY IMPAIRED?NO :CORRECTIVE LENSES READINESS TO LEARN?YES LEARNING PREFERENCES?NO LEARNING CAPABILITIES PRESENT?YES EMOTIONAL BARRIERS?NO SPECIAL DEVICES?NO INGOT CASTER NEEDED?NO DIET: REGULAR. EXERCISE: WALKS. MARITAL STATUS: . PAIN CLINIC PFS, CLERGY, PUBLIC HEALTH REFERRALS PFS REFERRAL NEEDED?NO CLERGY REFERRAL NEEDED?NO PUBLIC HEALTH REFERRAL NEEDED?NO WAS THE PROVIDER NOTIFIED OF ANY PERTINENT INFO?YES HAS THE PATIENT BEEN EDUCATED REGARDING HIS/HER PLAN OF CARE?YES HAS THE PATIENT BEEN EDUCATED REGARDING PAIN, THE RISK FOR PAIN, THE IMPORTANCE OF EFFECTIVE PAIN MANAGEMENT, AND THE PAIN ASSESSMENT PROCESS?YES ADVANCE DIRECTIVE ADVANCE DIRECTIVE DISCUSSED WITH PATIENT:YES GARETT MOSLEY [phone] HOSPITALIZATION/MAJOR DIAGNOSTIC PROCEDURE SURGERY RELATED VITAL SIGNS WT 201 LBS, HT 5'7", BMI 31.48 INDEX, BP 132/78 MM HG, HR 94 /MIN, RR 18 /MIN, TEMP 98.6 F, OXYGEN SAT % 95, SAFE IN ENV? (Y/N) Y, NA INITIALS KG, REVIEWED BY: FRANCISCO. EXAMINATION GENERAL EXAMINATION: THE PATIENT IS ALERT, ORIENTED TIMES THREE AND COOPERATIVE. HEART SHOWS REGULAR RHYTHM, NO MURMURS AND NO GALLOPS. LUNGS ARE CLEAR TO AUSCULTATION. THE PATIENT IS LIMPING MANY FROM THE LEFT LEG. THE LEFT LEG IS WEAKER THAN THE RIGHT LEG ON FLEXION AND EXTTENSION. STRAIGHT LEG RAISE ON THE RIGHT IS POSITIVE FOR RADICULOPATHY AT 10 DEGREES. 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 ASSESSMENTS INTERVERTEBRAL DISC DISORDERS WITH RADICULOPATHY, LUMBAR REGION - M51.16 (PRIMARY) TREATMENT INTERVERTEBRAL DISC DISORDERS WITH RADICULOPATHY, LUMBAR REGION CLINICAL NOTES: I DISCUSSED ALTERNATIVES WITH THE MR. MOSLEY. WE HAD A VERY LONG CONVERSATION AND WE LOOKED AT MANY DIFFERENT OPTIONS INCLUDING REMOVAL OF THE DEVICE AND TRIAL AGAIN, AND OTHER ALTERNATIVES. AFTER THE CONVERSATION WE AGREED ON REFERRING HIM FOR A BATTERY CHANGE. I AM GOING TO REFER HIM TO DR. WARE FOR THE BATTERY CHANGE. THE PATIENT UNDERSTANDS AND AGREES WITH THE TREATMENT PLAN. I, SHARIF BONILLA, DOCUMENTED THE ABOVE INFORMATION ACTING A SCRIBE FOR DR. CHE. I HAVE REVIEWED THE ABOVE DOCUMENT, WRITTEN BY SHARIF BONILLA, WEB APPLICATIONS ADMINISTRATOR, AND I VERIFY THAT IT IS ACCURATE. . PROCEDURES PN WORKMANS' COMP OPINION IN YOUR OPINION, WAS THE INCIDENT THAT THE PATIENT DESCRIBED THE COMPETENT MEDICAL CAUSE OF THIS INJURY/ILLNESS? YES ARE THE PATIENT'S COMPLAINTS CONSISTENT WITH HIS/HER HISTORY OF THE INJURY/ILLNESS? YES IS THE PATIENT'S HISTORY OF THE INJURY/ILLNESS CONSISTENT WITH YOUR OBJECTIVE FINDING? YES WHAT IS THE PERCENTAGE OF TEMPORARY IMPAIRMENT? MODERATE TO MARKED = 66.7% . IS THE PATIENT WORKING? NO . DOCTOR ON SITE: ELMA IVEY MD PROCEDURE CODES 27315 OFFICE/OUTPATIENT VISIT EST FA211 ESTABILISHED PATIENT [facility] FACILITY CHARGE DISPOSITION & COMMUNICATION FOLLOW UP FOLLOW UP WITH AGRONOMY INSTRUCTOR IN 3 MONTHS. (REASON: FOLLOW UP FOR BACK PAIN/DCS BATTERY CHANGE RESULTS) ELECTRONICALLY SIGNED BY ELMA CHE MD, MD ON 12/23/2019 AT 12:08 PM EDT DISCLAIMER : THIS IS A VISIT SUMMARY EXTRACTED FROM THE [employer] CHART. IT IS NOT A COPY OF THE [employer] PROGRESS NOTE. MALGORZATA
== END ==
LOC: M PAIN 15:15
PROVIDERS: ATTEND Anesthesiology
DX: M51.16 Intervertebral disc disorders with radiculopathy, lumbar region (principal); Z95.5 Presence of coronary angioplasty implant and graft; Z87.891 Personal history of nicotine dependence; Z79.891 Long term (current) use of opiate analgesic; Z79.899 Other long term (current) drug therapy; Z79.82 Long term (current) use of aspirin

== ENCOUNTER → 2020-03-22 | Outpatient (CLI) | payer OTHER | LOC: M PAIN 09:00 | PROVIDERS: ATTEND Nurse Practitioner Family | DX: M51.16 Intervertebral disc disorders with radiculopathy, lumbar region (principal); G89.29 Other chronic pain; Z96.89 Presence of other specified functional implants; Z95.5 Presence of coronary angioplasty implant and graft; Z87.891 Personal history of nicotine dependence; Z79.82 Long term (current) use of aspirin; Z79.899 Other long term (current) drug therapy ==

== ENCOUNTER → 2020-07-20 | Outpatient (CLI) | payer OTHER ==
--- NOTE | 2020-07-22 14:33 | ECWPNPC ---
PATIENT NAME: JOSE MOSLEY : 1950 GENDER: MALE VISIT DATE: 07/20/2020 DISCHARGE DATE: 07/20/20925 VISIT LOCKED DATE TIME: PHYSICIAN: LEV BLEVINS RESOURCE: LEV BLEVINS REASON FOR APPOINTMENT 1. W/C DCS CHECK ON BATTERY CHANGE W DR WARE HISTORY OF PRESENT ILLNESS GENERAL: HERE FOR ROUTINE 3 MONTH FOLLOW-UP FOR LOW BACK PAIN WITH RADICULOPATHY. HAS A DORSAL COLUMN STIMULATOR THAT ISN'T WORKING. HE IS IN CONTACT WITH DR. NEWMAN IN [place]. HAD TO MISS HIS LAST APPOINTMENT. HE WILL BE MAKING ANOTHER APPOINTMENT WITH THEM. THE PLAN IS TO HAVE HIS BATTERY CHANGED. THIS IS A WORK RELATED INJURY. OVERALL DOING FAIR USING MEDICATIONS TO CONTROL PAIN. -. FALL RISK SCREENING: SCREENING : NO FALLS REPORTED IN THE LAST YEAR. PAIN SCREENING: PATIENT HAS A COMPLAINT OF ACUTE OR CHRONIC PAIN :YES LOCATION OF PAIN:MID BACK, LOW BACK INTENSITY OF PAIN (SCALE OF 1 TO 10):6 WHAT DOES YOUR PAIN FEEL LIKE:OTHER PAIN GOES DOWN TO INTO THE LEFT LEG DURATION:CONTINOUS, CONSTANT, ALL DAY PAIN IS INCREASED BY:ACTIVITIES PAIN IS DECREASED BY:USE OF PAIN MEDICATIONS NURSING NOTE: -. PAIN CENTER INTAKE QUESTIONS: DO YOU HAVE A HISTORY OF MRSA? :NO DO YOU TAKE A BLOOD THINNERS? :NO DO YOU HAVE ANY BLEEDING DISORDERS? :NO ANY NEW NUMBNESS OR WEAKNESS IN YOUR LEGS OR ARMS? :YES LEGS ANY PACEMAKER,DEFIBRILLATOR, OR DORSAL COLUMN STIMULATOR? :YES DCS AND IS BROKEN DO YOU HAVE ANY RASHES OR OPEN SORES? :NO ARE YOU ALLERGIC TO IV DYE? :NO ARE YOU DIABETIC? :NO ANY NEW PROBLEMS WITH YOUR MEDICATIONS? :NO HAVE YOU RECEIVED A VACCINE IN THE PAST 30 DAYS? :NO DO YOU PLAN TO RECEIVE A VACCINE IN THE NEXT 21 DAYS? :NO DO YOU NEED ANY PRESCRIPTION? :NO DO YOU TAKE ANY IMMUNOSUPPRESSIVE MEDICATIONS? :NO IS THERE A CHANCE YOU COULD BE ? :NO ARE YOU BREAST FEEDING? :NO CURRENT MEDICATIONS TAKING HYDROCODONE-ACETAMINOPHEN 10-325 MG TABLET (SCHEDULE II DRUG) (PRIOR AUTH: RX REF#:[id number]) ORALLY UP TO 6 PER DAY NEEDED TAKING LYRICA 150 MG CAPSULE (SCHEDULE V DRUG) (PRIOR AUTH: RX REF#:[id number]) ORAL 3 TIMES DAILY TAKING METOPROLOL TARTRATE 25 MG TABLET 1 TABLET ORALLY DAILY TAKING BACLOFEN 10 MG TABLET (PRIOR AUTH: RX REF#:[id number]) ORAL 3 TIMES DAILY TAKING AMITRIPTYLINE HCL 25 MG TABLET 2 TABLETS (PRIOR AUTH: RX REF#:[id number]) ORAL AT BEDTIME TAKING OMEPRAZOLE 40 MG CAPSULE DELAYED RELEASE 1 CAPSULE 30 MINUTES BEFORE MORNING MEAL ORALLY ONCE A DAY TAKING ATORVASTATIN CALCIUM 40 MG TABLET 1 TABLET ORALLY ONCE A DAY TAKING ASPIRIN 81 MG TABLET CHEWABLE 1 TABLET ORALLY ONCE A DAY NOT-TAKING FAMOTIDINE 40 MG TABLET (PRIOR AUTH: RX REF#:[id number]) ORAL 3 TIMES DAILY NOT-TAKING BRILINTA 60 MG TABLET 1 TABLET ORALLY TWICE A DAY, NOTES: PT UNSURE OF DOSE NOT-TAKING CLOPIDOGREL BISULFATE 75 MG TABLET 1 TABLET ORALLY ONCE A DAY MEDICATION LIST REVIEWED AND RECONCILED WITH THE PATIENT PAST MEDICAL HISTORY CARDIAC STENTS CHRONIC LOW BACK PAIN ALLERGIES N.K.D.A. SURGICAL HISTORY SPINAL CORD STIMULATOR [address] 2012 2 HEART STENTS 2018 FAMILY HISTORY FATHER: , DIAGNOSED WITH UNSPECIFIED HEART DISEASE MOTHER: SIBLINGS: , UNSPECIFIED HEART DISEASE, DIABETES 2 BROTHER(S) . 2DAUGHTER(S) . BROTHERS 1 DM, 1 HEART DISEASE. SOCIAL HISTORY GENERAL: TOBACCO USE ARE YOU A:FORMER SMOKER HOW LONG HAS IT BEEN SINCE YOU LAST SMOKED?1-5 YEARS LATEX QUESTIONNAIRE LATEX ALLERGY : HAVE YOU EVER DEVELOPED ANY TYPE OF REACTION AFTER HANDLING LATEX PRODUCTS SUCH RUBBER GLOVES, CONDOMS, DIAPHRAGMS, BALLOONS, SOCKS, OR UNDERWEAR?NO LATEX ALLERGY : HAVE YOU EVER DEVELOPED ANY TYPE OF REACTION DURING OR AFTER DENTAL APPOINTMENT, VAGINAL/RECTAL EXAMINATION, SURGICAL PROCEDURE, OR ANY OTHER EXPOSURE?NO LATEX RISK : HAVE YOU EVER HAD ANY DIFFICULTY BREATHING OR HIVES AFTER EATING OR HANDLING ANY FRUITS, OR VEGETABLES; SUCH KIWI, BANANAS, STONE FRUITS, OR CHESTNUTSNO LATEX RISK : DO YOU HAVE A PREVIOUS PERSONAL HISTORY OF MORE THAN NINE SURGERIES, SPINA BIFIDA, OR REPEATED CATHERIZATIONS? NO LATEX RISK : ARE YOU FREQUENTLY EXPOSED TO LATEX PRODUCTS IN YOUR OCCUPATION?NO DATE ASKED : 07/20/2020 ALCOHOL USE: NO,USE TO. ALCOHOL SCREENING POINTS: 2, INTERPRETATION: NEGATIVE. RECREATIONAL DRUG USE DRUG USE?YES MARIJUANA HOW OFTEN AND HOW MUCH? SMOKES POT EVERY NIGHT BEFORE HE GOES TO BED CAFFEINE CAFFEINE USE?NO RESTORATIONIST [id number] DENOMINATIONAL LANGUAGE LANGUAGES SPOKEN:YORUBA LEARNING BARRIERS / SPECIAL NEEDS CHANGE FROM LAST VISIT?NO BARRIERS TO LEARNING?NO HEARING IMPAIRED?NO VISION IMPAIRED?YES :CORRECTIVE LENSES COGNITIVELY IMPAIRED?NO READINESS TO LEARN?YES LEARNING PREFERENCES?NO LEARNING CAPABILITIES PRESENT?YES EMOTIONAL BARRIERS?NO SPECIAL DEVICES?NO DESULPHURIZER OPERATOR NEEDED?NO DIET: REGULAR. EXERCISE: WALKS. MARITAL STATUS: . - PFS REFERRAL NEEDED?NO CLERGY REFERRAL NEEDED?NO PUBLIC HEALTH REFERRAL NEEDED?NO WAS THE PROVIDER NOTIFIED OF ANY PERTINENT INFO?YES HAS THE PATIENT BEEN EDUCATED REGARDING HIS/HER PLAN OF CARE?YES HAS THE PATIENT BEEN EDUCATED REGARDING PAIN, THE RISK FOR PAIN, THE IMPORTANCE OF EFFECTIVE PAIN MANAGEMENT, AND THE PAIN ASSESSMENT PROCESS?YES ADVANCE DIRECTIVE ADVANCE DIRECTIVE DISCUSSED WITH PATIENT:YES GARETT MOSLEY [phone] HOSPITALIZATION/MAJOR DIAGNOSTIC PROCEDURE SURGERY RELATED ER VISIT DEHYDRATED 07/19/2020 REVIEW OF SYSTEMS CONSTITUTIONAL: ANY RECENT FEVER NO . CHILLS NO . WEIGHT CHANGE OF UNKNOWN REASONS NO . GASTROENTEROLOGY: NEW UNEXPLAINABLE CHANGES IN BOWEL CONTROL NO . CONSTIPATION NO . GENITOURINARY: ANY NEW CHANGE IN BLADDER CONTROL? NO . NEUROLOGY: NEW ONSET DIZZINESS OR NEUROLOGICAL CHANGES NOT MENTIONED NO . NEW NUMBNESS OR PAIN PATTERNS NOT MENTIONED AND PERTINENT TO TODAY'S VISIT NO . CARDIOLOGY: NEW CHEST PRESSURE NO . PATIENT DENIES NO . RESPIRATORY: UNEXPLAINABLE COUGH NO . NEW SHORTNESS OF BREATH NO . VITAL SIGNS WT 197.0 LBS, HT 5'7", BMI 30.85 INDEX, BP 138/97 MM HG, HR 111 /MIN, RR 18 /MIN, TEMP 97.0 F, OXYGEN SAT % 97%, SAFE IN ENV? (Y/N) YES, NA INITIALS AW 0904T.BRITTNY HERNADEZ. EXAMINATION GENERAL EXAMINATION: GENERALAWAKE,ALERT ,PLEASANT . PSYCHAFFECT NORMAL . LUNGS:LUNG VARGAS ARE CLEAR TO AUSCULTATION BILATERALLY. GOOD MOVEMENT OF AIR . HEART:S1, S2 IN A REGULAR RATE AND RHYTHM. NO SIGNIFICANT MURMURS, RUBS OR GALLOPS NOTED . ASSESSMENTS INTERVERTEBRAL DISC DISORDERS WITH RADICULOPATHY, LUMBAR REGION - M51.16 (PRIMARY) PROCEDURES PN WORKMANS' COMP OPINION IN YOUR OPINION, WAS THE INCIDENT THAT THE PATIENT DESCRIBED THE COMPETENT MEDICAL CAUSE OF THIS INJURY/ILLNESS? YES ARE THE PATIENT'S COMPLAINTS CONSISTENT WITH HIS/HER HISTORY OF THE INJURY/ILLNESS? YES IS THE PATIENT'S HISTORY OF THE INJURY/ILLNESS CONSISTENT WITH YOUR OBJECTIVE FINDING? YES WHAT IS THE PERCENTAGE OF TEMPORARY IMPAIRMENT? MODERATE TO MARKED = 66.7% IS THE PATIENT WORKING? NO DOCTOR ON SITE: ELMA IVEY MD , ELMA IVEY MD PROCEDURE CODES FA211 ESTABILISHED PATIENT [facility] CHARGE DISPOSITION & COMMUNICATION FOLLOW UP 3 MONTHS (REASON: W/C LBP/CHECK ON DCS BAT CHANGE W DR WARE) ELECTRONICALLY SIGNED BY MYRA GEORGE ON 07/21/2020 AT 02:18 PM EDT DISCLAIMER : THIS IS A VISIT SUMMARY EXTRACTED FROM THE [employer] CHART. IT IS NOT A COPY OF THE [employer] PROGRESS NOTE. MALGORZATA
== END ==
LOC: M PAIN 09:00
PROVIDERS: ATTEND Nurse Practitioner Family
DX: M51.16 Intervertebral disc disorders with radiculopathy, lumbar region (principal); Z96.89 Presence of other specified functional implants; Z95.5 Presence of coronary angioplasty implant and graft; Z87.891 Personal history of nicotine dependence; Z79.82 Long term (current) use of aspirin; Z79.899 Other long term (current) drug therapy

== ENCOUNTER → 2020-10-07 | Outpatient (CLI) | payer OTHER ==
--- NOTE | 2020-10-11 00:33 | ECWPNPC ---
PATIENT NAME: JOSE MOSLEY : 1950 GENDER: MALE VISIT DATE: 10/07/2020 DISCHARGE DATE: 10/07/20924 VISIT LOCKED DATE TIME: PHYSICIAN: LEV BLEVINS RESOURCE: LEV BLEVINS REASON FOR APPOINTMENT 1. W/C LBP/CHECK ON DCS BAT CHANGE W DR WARE HISTORY OF PRESENT ILLNESS DEPRESSION SCREENING: PHQ-2 (2015 EDITION) LITTLE INTEREST OR PLEASURE IN DOING THINGS?NOT AT ALL FEELING DOWN, DEPRESSED, OR HOPELESS?SEVERAL DAYS TOTAL SCORE1 GENERAL: HERE FOR ROUTINE 3 MONTH FOLLOW-UP FOR LOW BACK PAIN WITH RADICULOPATHY. HAS A DORSAL COLUMN STIMULATOR IN PLACE AND HAD BATTERY CHANGE THIS PAST YEAR. STATES DORSAL COLUMN STIMULATOR IS WORKING WELL. THIS IS A WORK RELATED INJURY. OVERALL DOING WELL. USES CHRONIC PAIN MEDICATIONS PRESCRIBED BY PRIMARY CARE. - -. FALL RISK SCREENING: SCREENING : NO FALLS REPORTED IN THE LAST YEAR. PAIN SCREENING: PATIENT HAS A COMPLAINT OF ACUTE OR CHRONIC PAIN :YES LOCATION OF PAIN:LOW BACK INTENSITY OF PAIN (SCALE OF 1 TO 10):6 WHAT DOES YOUR PAIN FEEL LIKE:ACHING, CONTINOUS, THROBBING, SHOOTING DURATION:CONTINOUS, CONSTANT, ALL DAY PAIN IS INCREASED BY:ACTIVITIES, PROLONGED STANDING PAIN IS DECREASED BY:USE OF PAIN MEDICATIONS NURSING NOTE: -. PAIN CENTER INTAKE QUESTIONS: DO YOU HAVE A HISTORY OF MRSA? :NO DO YOU TAKE A BLOOD THINNERS? :NO DO YOU HAVE ANY BLEEDING DISORDERS? :NO ANY NEW NUMBNESS OR WEAKNESS IN YOUR LEGS OR ARMS? :YES LEGS ANY PACEMAKER,DEFIBRILLATOR, OR DORSAL COLUMN STIMULATOR? :YES DCS DO YOU HAVE ANY RASHES OR OPEN SORES? :NO ARE YOU ALLERGIC TO IV DYE? :NO ARE YOU DIABETIC? :NO ANY NEW PROBLEMS WITH YOUR MEDICATIONS? :NO HAVE YOU RECEIVED A VACCINE IN THE PAST 30 DAYS? :NO DO YOU PLAN TO RECEIVE A VACCINE IN THE NEXT 21 DAYS? :NO DO YOU NEED ANY PRESCRIPTION? :NO DO YOU TAKE ANY IMMUNOSUPPRESSIVE MEDICATIONS? :NO IS THERE A CHANCE YOU COULD BE ? :NO ARE YOU BREAST FEEDING? :NO CURRENT MEDICATIONS TAKING HYDROCODONE-ACETAMINOPHEN 10-325 MG TABLET (SCHEDULE II DRUG) (PRIOR AUTH: RX REF#:[id number]) ORALLY UP TO 6 PER DAY NEEDED TAKING LYRICA 150 MG CAPSULE (SCHEDULE V DRUG) (PRIOR AUTH: RX REF#:[id number]) ORAL 3 TIMES DAILY TAKING METOPROLOL TARTRATE 25 MG TABLET 1 TABLET ORALLY DAILY TAKING BACLOFEN 10 MG TABLET (PRIOR AUTH: RX REF#:[id number]) ORAL 3 TIMES DAILY TAKING AMITRIPTYLINE HCL 25 MG TABLET 2 TABLETS (PRIOR AUTH: RX REF#:[id number]) ORAL AT BEDTIME TAKING OMEPRAZOLE 40 MG CAPSULE DELAYED RELEASE 1 CAPSULE 30 MINUTES BEFORE MORNING MEAL ORALLY ONCE A DAY TAKING ATORVASTATIN CALCIUM 40 MG TABLET 1 TABLET ORALLY ONCE A DAY TAKING ASPIRIN 81 MG TABLET CHEWABLE 1 TABLET ORALLY ONCE A DAY NOT-TAKING FAMOTIDINE 40 MG TABLET (PRIOR AUTH: RX REF#:[id number]) ORAL 3 TIMES DAILY NOT-TAKING BRILINTA 60 MG TABLET 1 TABLET ORALLY TWICE A DAY, NOTES: PT UNSURE OF DOSE NOT-TAKING CLOPIDOGREL BISULFATE 75 MG TABLET 1 TABLET ORALLY ONCE A DAY MEDICATION LIST REVIEWED AND RECONCILED WITH THE PATIENT PAST MEDICAL HISTORY CARDIAC STENTS CHRONIC LOW BACK PAIN ALLERGIES NO[ALLERGIES VERIFIED] SURGICAL HISTORY SPINAL CORD STIMULATOR [address] 2012 2 HEART STENTS 2018 SOCIAL HISTORY GENERAL: TOBACCO USE ARE YOU A:FORMER SMOKER HOW LONG HAS IT BEEN SINCE YOU LAST SMOKED?1-5 YEARS LATEX QUESTIONNAIRE LATEX ALLERGY : HAVE YOU EVER DEVELOPED ANY TYPE OF REACTION AFTER HANDLING LATEX PRODUCTS SUCH RUBBER GLOVES, CONDOMS, DIAPHRAGMS, BALLOONS, SOCKS, OR UNDERWEAR?NO LATEX ALLERGY : HAVE YOU EVER DEVELOPED ANY TYPE OF REACTION DURING OR AFTER DENTAL APPOINTMENT, VAGINAL/RECTAL EXAMINATION, SURGICAL PROCEDURE, OR ANY OTHER EXPOSURE?NO LATEX RISK : HAVE YOU EVER HAD ANY DIFFICULTY BREATHING OR HIVES AFTER EATING OR HANDLING ANY FRUITS, OR VEGETABLES; SUCH KIWI, BANANAS, STONE FRUITS, OR CHESTNUTSNO LATEX RISK : DO YOU HAVE A PREVIOUS PERSONAL HISTORY OF MORE THAN NINE SURGERIES, SPINA BIFIDA, OR REPEATED CATHERIZATIONS? NO LATEX RISK : ARE YOU FREQUENTLY EXPOSED TO LATEX PRODUCTS IN YOUR OCCUPATION?NO DATE ASKED : 10/07/2020 ALCOHOL USE: NO,USE TO. ALCOHOL SCREENING POINTS: 2, INTERPRETATION: NEGATIVE. RECREATIONAL DRUG USE DRUG USE?YES MARIJUANA HOW OFTEN AND HOW MUCH? SMOKES POT EVERY NIGHT BEFORE HE GOES TO BED CAFFEINE CAFFEINE USE?NO GNOSTICISM [id number] YAZIDISM LANGUAGE LANGUAGES SPOKEN:MOZAMBICAN LEARNING BARRIERS / SPECIAL NEEDS CHANGE FROM LAST VISIT?NO BARRIERS TO LEARNING?NO HEARING IMPAIRED?NO VISION IMPAIRED?YES :CORRECTIVE LENSES COGNITIVELY IMPAIRED?YES READINESS TO LEARN?YES LEARNING PREFERENCES?NO LEARNING CAPABILITIES PRESENT?YES EMOTIONAL BARRIERS?NO SPECIAL DEVICES?NO EXERCISE INSTRUCT NEEDED?NO DIET: REGULAR. EXERCISE: WALKS. MARITAL STATUS: . - PFS REFERRAL NEEDED?NO CLERGY REFERRAL NEEDED?NO PUBLIC HEALTH REFERRAL NEEDED?NO WAS THE PROVIDER NOTIFIED OF ANY PERTINENT INFO?YES HAS THE PATIENT BEEN EDUCATED REGARDING HIS/HER PLAN OF CARE?YES HAS THE PATIENT BEEN EDUCATED REGARDING PAIN, THE RISK FOR PAIN, THE IMPORTANCE OF EFFECTIVE PAIN MANAGEMENT, AND THE PAIN ASSESSMENT PROCESS?YES ADVANCE DIRECTIVE ADVANCE DIRECTIVE DISCUSSED WITH PATIENT:YES GARETT MOSLEY [phone] HOSPITALIZATION/MAJOR DIAGNOSTIC PROCEDURE SURGERY RELATED ER VISIT DEHYDRATED 07/19/2020 REVIEW OF SYSTEMS CONSTITUTIONAL: ANY RECENT FEVER NO . CHILLS NO . WEIGHT CHANGE OF UNKNOWN REASONS NO . GASTROENTEROLOGY: NEW UNEXPLAINABLE CHANGES IN BOWEL CONTROL NO . CONSTIPATION NO . GENITOURINARY: ANY NEW CHANGE IN BLADDER CONTROL? NO . NEUROLOGY: NEW ONSET DIZZINESS OR NEUROLOGICAL CHANGES NOT MENTIONED NO . NEW NUMBNESS OR PAIN PATTERNS NOT MENTIONED AND PERTINENT TO TODAY'S VISIT NO . CARDIOLOGY: NEW CHEST PRESSURE NO . PATIENT DENIES NO . RESPIRATORY: UNEXPLAINABLE COUGH NO . NEW SHORTNESS OF BREATH NO . VITAL SIGNS WT 193.0 LBS, HT 5'7", BMI 30.22 INDEX, BP 158/74 MM HG, HR 93 /MIN, RR 18 /MIN, TEMP 98.0 F, OXYGEN SAT % 92%, SAFE IN ENV? (Y/N) YES, NA INITIALS AW 0844T.BRITTNY HERNADEZ. EXAMINATION GENERAL EXAMINATION: GENERALAWAKE,ALERT ,PLEASANT . PSYCHAFFECT NORMAL . LUNGS:LUNG VARGAS ARE CLEAR TO AUSCULTATION BILATERALLY. GOOD MOVEMENT OF AIR . HEART:S1, S2 IN A REGULAR RATE AND RHYTHM. NO SIGNIFICANT MURMURS, RUBS OR GALLOPS NOTED . ASSESSMENTS INTERVERTEBRAL DISC DISORDERS WITH RADICULOPATHY, LUMBAR REGION - M51.16 (PRIMARY) TREATMENT INTERVERTEBRAL DISC DISORDERS WITH RADICULOPATHY, LUMBAR REGION NOTES: CONTINUE HOME EXERCISE AND STRETCHING. PROCEDURES PN WORKMANS' COMP OPINION IN YOUR OPINION, WAS THE INCIDENT THAT THE PATIENT DESCRIBED THE COMPETENT MEDICAL CAUSE OF THIS INJURY/ILLNESS? YES ARE THE PATIENT'S COMPLAINTS CONSISTENT WITH HIS/HER HISTORY OF THE INJURY/ILLNESS? YES IS THE PATIENT'S HISTORY OF THE INJURY/ILLNESS CONSISTENT WITH YOUR OBJECTIVE FINDING? YES WHAT IS THE PERCENTAGE OF TEMPORARY IMPAIRMENT? MODERATE TO MARKED = 66.7% IS THE PATIENT WORKING? NO DOCTOR ON SITE: ELMA IVEY MD PROCEDURE CODES FA211 ESTABILISHED PATIENT [facility] FACILITY CHARGE DISPOSITION & COMMUNICATION FOLLOW UP 3 MONTHS (REASON: WORKMEN'S COMPENSATION ROUTINE 3-MONTH CHECK/DORSAL COLUMN STIMULATOR) ELECTRONICALLY SIGNED BY MYRA GEORGE ON 10/10/2020 AT 08:32 AM EDT DISCLAIMER : THIS IS A VISIT SUMMARY EXTRACTED FROM THE [employer] CHART. IT IS NOT A COPY OF THE [employer] PROGRESS NOTE. MALGORZATA
== END ==
LOC: M PAIN 09:00
PROVIDERS: ATTEND Nurse Practitioner Family
DX: M51.16 Intervertebral disc disorders with radiculopathy, lumbar region (principal); Z96.89 Presence of other specified functional implants; Z95.5 Presence of coronary angioplasty implant and graft; Z87.891 Personal history of nicotine dependence; Z79.82 Long term (current) use of aspirin; Z79.899 Other long term (current) drug therapy

== ENCOUNTER → 2021-01-27 | Outpatient (CLI) | payer OTHER | LOC: M PAIN 09:15 | PROVIDERS: ATTEND Nurse Practitioner Family | DX: M51.16 Intervertebral disc disorders with radiculopathy, lumbar region (principal); G89.29 Other chronic pain; Z87.891 Personal history of nicotine dependence; Z79.82 Long term (current) use of aspirin; Z79.899 Other long term (current) drug therapy | CPT/HCPCS: 76000; G0463 ==

== ENCOUNTER → 2021-05-11 | Outpatient (CLI) | payer OTHER | LOC: M PAIN 15:00 | PROVIDERS: ATTEND Anesthesiology | DX: M51.16 Intervertebral disc disorders with radiculopathy, lumbar region (principal); G89.29 Other chronic pain; Z87.891 Personal history of nicotine dependence; Z79.82 Long term (current) use of aspirin; Z79.899 Other long term (current) drug therapy ==

== ENCOUNTER → 2021-06-21 | Outpatient (CLI) | payer OTHER | LOC: M PAIN 10:00 | PROVIDERS: ATTEND Anesthesiology | DX: M51.16 Intervertebral disc disorders with radiculopathy, lumbar region (principal); G89.29 Other chronic pain; Z96.89 Presence of other specified functional implants; Z87.891 Personal history of nicotine dependence; Z79.82 Long term (current) use of aspirin; Z79.899 Other long term (current) drug therapy ==

== ENCOUNTER → 2021-09-06 | Outpatient (CLI) | payer OTHER | LOC: M PAIN 08:30 | PROVIDERS: ATTEND Anesthesiology | DX: M51.9 Unspecified thoracic, thoracolumbar and lumbosacral intervertebral disc disorder (principal); M54.16 Radiculopathy, lumbar region; G89.29 Other chronic pain; Z96.89 Presence of other specified functional implants; Z95.5 Presence of coronary angioplasty implant and graft; Z87.891 Personal history of nicotine dependence; Z79.82 Long term (current) use of aspirin; Z79.899 Other long term (current) drug therapy ==

== ENCOUNTER → 2021-09-29 | Outpatient (CLI) | payer OTHER | LOC: M PAIN 09:00 | PROVIDERS: ATTEND Anesthesiology | DX: M51.16 Intervertebral disc disorders with radiculopathy, lumbar region (principal); M48.061 Spinal stenosis, lumbar region without neurogenic claudication; G89.29 Other chronic pain; Z96.89 Presence of other specified functional implants; Z95.5 Presence of coronary angioplasty implant and graft; Z87.891 Personal history of nicotine dependence; Z79.82 Long term (current) use of aspirin; Z79.899 Other long term (current) drug therapy ==

== ENCOUNTER → 2022-02-20 | Outpatient (CLI) | payer OTHER ==
[~2022-02-20] MED LIST changes: +CLOP75TA99 PO; +ISOVUE-M 300 61% 15ML VIAL As Ordered ONE; +LIDOCAINE 1% SDV 30ML VIAL As Ordered ONE; -PLAV1TAB2 PO; +methylPREDNISolone SUSP 40MG/ML 1ML VIAL (DEPO MEDROL) As Ordered ONE
== END ==
LOC: M PAIN 08:15
PROVIDERS: ATTEND Anesthesiology
DX: M51.16 Intervertebral disc disorders with radiculopathy, lumbar region (principal); G89.29 Other chronic pain; Z95.5 Presence of coronary angioplasty implant and graft; Z87.891 Personal history of nicotine dependence; Z79.82 Long term (current) use of aspirin; Z79.899 Other long term (current) drug therapy
CPT/HCPCS: 62323; J1030

== ENCOUNTER → 2022-03-23 | Outpatient (CLI) | payer OTHER ==
[~2022-03-23] MED LIST changes: -ISOVUE-M 300 61% 15ML VIAL As Ordered ONE; -LIDOCAINE 1% SDV 30ML VIAL As Ordered ONE; -methylPREDNISolone SUSP 40MG/ML 1ML VIAL (DEPO MEDROL) As Ordered ONE
== END ==
LOC: M PAIN 07:45
PROVIDERS: ATTEND Anesthesiology
DX: G89.29 Other chronic pain (principal); M51.16 Intervertebral disc disorders with radiculopathy, lumbar region; Z95.5 Presence of coronary angioplasty implant and graft; Z87.891 Personal history of nicotine dependence; Z79.82 Long term (current) use of aspirin; Z79.899 Other long term (current) drug therapy

== ENCOUNTER → 2022-06-04 | Outpatient (CLI) | payer OTHER | LOC: M PAIN 14:30 | PROVIDERS: ATTEND Anesthesiology | DX: M48.061 Spinal stenosis, lumbar region without neurogenic claudication (principal); M51.16 Intervertebral disc disorders with radiculopathy, lumbar region; G89.29 Other chronic pain; Z95.5 Presence of coronary angioplasty implant and graft; Z87.891 Personal history of nicotine dependence; Z79.82 Long term (current) use of aspirin; Z79.899 Other long term (current) drug therapy ==

== ENCOUNTER → 2022-07-24 | Outpatient (CLI) | payer OTHER ==
[~2022-07-24] MED LIST changes: +BUPIVACAINE HCL 0.25% 30ML VIAL As Ordered ONE; +ISOVUE-M 300 61% 15ML VIAL As Ordered ONE; +LIDOCAINE 1% SDV 30ML VIAL As Ordered ONE; +NORCO, ANEXSIA 5/325MG TABLET (HYDROcodone/ACETAMINOPHEN) As Ordered ONE; +diazePAM 2 MG TAB As Ordered ONE
== END ==
LOC: M PAIN 08:00
PROVIDERS: ATTEND Anesthesiology
DX: M51.16 Intervertebral disc disorders with radiculopathy, lumbar region (principal); G89.29 Other chronic pain; Z87.891 Personal history of nicotine dependence; Z79.82 Long term (current) use of aspirin; Z79.899 Other long term (current) drug therapy
CPT/HCPCS: 64483; 64484; J1100; Q9967; S0020

== ENCOUNTER → 2022-08-22 | Outpatient (CLI) | payer OTHER ==
[~2022-08-22] MED LIST changes: -BUPIVACAINE HCL 0.25% 30ML VIAL As Ordered ONE; -ISOVUE-M 300 61% 15ML VIAL As Ordered ONE; -LIDOCAINE 1% SDV 30ML VIAL As Ordered ONE; -NORCO, ANEXSIA 5/325MG TABLET (HYDROcodone/ACETAMINOPHEN) As Ordered ONE; -diazePAM 2 MG TAB As Ordered ONE
== END ==
LOC: M PAIN 08:15
PROVIDERS: ATTEND Anesthesiology
DX: M51.17 Intervertebral disc disorders with radiculopathy, lumbosacral region (principal); G89.29 Other chronic pain; Z95.5 Presence of coronary angioplasty implant and graft; Z87.891 Personal history of nicotine dependence; Z79.82 Long term (current) use of aspirin; Z79.899 Other long term (current) drug therapy

== ENCOUNTER → 2022-10-25 | Outpatient (CLI) | payer OTHER ==
[~2022-10-25] MED LIST changes: -FAMO40SU2 PO; +FAMO40SU9 PO; +ISOVUE-M 300 61% 15ML VIAL As Ordered ONE; +LIDOCAINE 1% SDV 30ML VIAL As Ordered ONE; +methylPREDNISolone SUSP 40MG/ML 1ML VIAL (DEPO MEDROL) As Ordered ONE
== END ==
LOC: M PAIN 10:30
PROVIDERS: ATTEND Anesthesiology
DX: M51.16 Intervertebral disc disorders with radiculopathy, lumbar region (principal); G89.29 Other chronic pain; Z87.891 Personal history of nicotine dependence; Z79.82 Long term (current) use of aspirin; Z79.899 Other long term (current) drug therapy

== ENCOUNTER → 2022-11-07 | Outpatient (CLI) | payer OTHER ==
[~2022-11-07] MED LIST changes: -ISOVUE-M 300 61% 15ML VIAL As Ordered ONE; -LIDOCAINE 1% SDV 30ML VIAL As Ordered ONE; -methylPREDNISolone SUSP 40MG/ML 1ML VIAL (DEPO MEDROL) As Ordered ONE
== END ==
LOC: M PAIN 14:15
PROVIDERS: ATTEND Anesthesiology
DX: M51.16 Intervertebral disc disorders with radiculopathy, lumbar region (principal); G89.29 Other chronic pain; Z95.5 Presence of coronary angioplasty implant and graft; Z87.891 Personal history of nicotine dependence; Z79.82 Long term (current) use of aspirin; Z79.899 Other long term (current) drug therapy

== ENCOUNTER → 2023-02-13 | Outpatient (CLI) | payer OTHER | LOC: M PAIN 10:15 | PROVIDERS: ATTEND Anesthesiology | DX: M51.16 Intervertebral disc disorders with radiculopathy, lumbar region (principal); G89.29 Other chronic pain; Z95.5 Presence of coronary angioplasty implant and graft; Z79.82 Long term (current) use of aspirin; Z79.01 Long term (current) use of anticoagulants; Z79.891 Long term (current) use of opiate analgesic; Z79.899 Other long term (current) drug therapy; Z87.891 Personal history of nicotine dependence; Z86.73 Personal history of transient ischemic attack (TIA), and cerebral infarction without residual deficits ==

== ENCOUNTER → 2023-03-22 | Outpatient (CLI) | payer OTHER | LOC: M PAIN 15:45 | PROVIDERS: ATTEND Anesthesiology | DX: M48.062 Spinal stenosis, lumbar region with neurogenic claudication (principal); M51.16 Intervertebral disc disorders with radiculopathy, lumbar region; G89.29 Other chronic pain; Z95.5 Presence of coronary angioplasty implant and graft; Z79.01 Long term (current) use of anticoagulants; Z79.891 Long term (current) use of opiate analgesic; Z79.899 Other long term (current) drug therapy; Z87.891 Personal history of nicotine dependence ==

== ENCOUNTER → 2023-05-15 | Outpatient (CLI) | payer OTHER | LOC: M PAIN 11:30 | PROVIDERS: ATTEND Anesthesiology | DX: M48.061 Spinal stenosis, lumbar region without neurogenic claudication (principal); M51.16 Intervertebral disc disorders with radiculopathy, lumbar region; G89.29 Other chronic pain; Z87.891 Personal history of nicotine dependence; Z95.5 Presence of coronary angioplasty implant and graft; Z79.01 Long term (current) use of anticoagulants; Z79.891 Long term (current) use of opiate analgesic; Z79.899 Other long term (current) drug therapy ==

== ENCOUNTER → 2023-06-07 | Outpatient (CLI) | payer OTHER | LOC: M PAIN 09:15 | PROVIDERS: ATTEND Nurse Practitioner Family | DX: M48.061 Spinal stenosis, lumbar region without neurogenic claudication (principal); M51.16 Intervertebral disc disorders with radiculopathy, lumbar region; G89.29 Other chronic pain; Z95.5 Presence of coronary angioplasty implant and graft; Z79.891 Long term (current) use of opiate analgesic; Z79.899 Other long term (current) drug therapy; Z87.891 Personal history of nicotine dependence ==

== ENCOUNTER → 2023-12-19 | Outpatient (CLI) | payer OTHER ==
[~2023-12-19] MED LIST changes: +ISOVUE-M 300 61% 15ML VIAL As Ordered ONE; +LIDOCAINE 1% SDV 30ML VIAL As Ordered ONE; +dexAMETHasone 10MG/1ML VIAL PRES.FREE As Ordered ONE
== END ==
LOC: M PAIN 08:30
PROVIDERS: ATTEND Anesthesiology
DX: M51.16 Intervertebral disc disorders with radiculopathy, lumbar region (principal); G89.29 Other chronic pain; Z95.5 Presence of coronary angioplasty implant and graft; Z79.01 Long term (current) use of anticoagulants; Z79.891 Long term (current) use of opiate analgesic; Z79.899 Other long term (current) drug therapy; Z87.891 Personal history of nicotine dependence
CPT/HCPCS: 62323; J1100; Q9967

== ENCOUNTER → 2024-01-28 | Outpatient (CLI) | payer OTHER ==
[~2024-01-28] MED LIST changes: -ISOVUE-M 300 61% 15ML VIAL As Ordered ONE; -LIDOCAINE 1% SDV 30ML VIAL As Ordered ONE; -dexAMETHasone 10MG/1ML VIAL PRES.FREE As Ordered ONE
== END ==
LOC: M PAIN 09:00
PROVIDERS: ATTEND Nurse Practitioner Family
DX: M51.16 Intervertebral disc disorders with radiculopathy, lumbar region (principal); G89.29 Other chronic pain; Z95.5 Presence of coronary angioplasty implant and graft; Z87.891 Personal history of nicotine dependence; Z79.01 Long term (current) use of anticoagulants; Z79.891 Long term (current) use of opiate analgesic; Z79.899 Other long term (current) drug therapy

== ENCOUNTER → 2024-03-26 | Outpatient (CLI) | payer OTHER | LOC: M PAIN 09:00 | PROVIDERS: ATTEND Nurse Practitioner Family | DX: M51.16 Intervertebral disc disorders with radiculopathy, lumbar region (principal); G89.29 Other chronic pain; G47.00 Insomnia, unspecified; Z87.891 Personal history of nicotine dependence; Z79.891 Long term (current) use of opiate analgesic; Z79.899 Other long term (current) drug therapy; Z79.01 Long term (current) use of anticoagulants; Z95.5 Presence of coronary angioplasty implant and graft ==

== ENCOUNTER → 2024-04-24 | Outpatient (CLI) | payer OTHER | LOC: M PAIN 09:30 | PROVIDERS: ATTEND Nurse Practitioner Family | DX: M51.16 Intervertebral disc disorders with radiculopathy, lumbar region (principal); G89.29 Other chronic pain; Z95.5 Presence of coronary angioplasty implant and graft; Z79.01 Long term (current) use of anticoagulants; Z79.891 Long term (current) use of opiate analgesic; Z79.899 Other long term (current) drug therapy ==